=== PATIENT | male | born 1945 | race Caucasian/White ===

== ENCOUNTER 2017-06-02 16:36 | Inpatient (IN) | payer MEDICARE, BC ==
--- NOTE | 2017-06-02 17:46 | EDM.PDOC ---
<Karen Peng - Last Filed: 06/02/17 18:46> ED HPI GENERAL MEDICAL PROBLEM - General Chief Complaint: Respiratory Problem Stated Complaint: ABNORMAL XRAY AT [facility], [id number] Time Seen by Provider: 06/02/17 17:30 Source of Information: Reports: Patient, Family, RN, RN Notes Reviewed History Limitations: Reports: No Limitations - History of Present Illness INITIAL COMMENTS - FREE TEXT/NARRATIVE: Patient presents to the ER with his from [facility]. states he was seen last week for pneumonia, a chest xray was done at that time. He was started on Zithromax. He has completed the Zithromax and is not feeling any better so was seen at the clinic again today. He states he is not feeling, better, has been coughing quite a bit, until he gets quite short of breath. The patient and his were told that there were some concerning findings on the chest xray done last week. They state he has a history of PE and has been on coumadin. They would like to look further into it. Patient denies fever, chills, N/V/D, chest pain. He states he does get SOB from time to time, especially with coughing. Onset: Gradual - Related Data Allergies Allergy/AdvReac Type Severity Reaction Status Date / Time mercury (elemental) Allergy Unknown Rash Verified 06/02/17 16:52 [Mercury (Elemental)] Sulfa (Sulfonamide Allergy Unknown Rash Verified 06/02/17 16:52 Antibiotics) mold Allergy Sneezing Uncoded 06/02/17 16:52 Home Meds: Home Meds Famotidine [Pepcid] 20 mg PO DAILY PRN 03/30/14 [History] Folic Acid 1 mg PO DAILY 03/30/14 [History] Lisinopril 5 mg PO DAILY 03/30/14 [History] Loratadine/Pseudoephedrine [Claritin-D 24 Hour Tablet] 1 tab PO DAILY PRN [History] Tamsulosin [Flomax] 0.4 mg PO DAILY 03/30/14 [History] Tiotropium [Spiriva Handihaler] 1 cap INH DAILY 03/30/14 [History] Warfarin Sodium 5 mg PO ASDIRECTED 03/30/14 [History] predniSONE [Prednisone] 1 tab PO .EVERY OTHER DAY 03/30/14 [History] Acetaminophen/Diphenhydramine [Tylenol Pm Ex-Strength Caplet] 2 tab PO DAILY PRN 09/21/15 [History] Warfarin [Coumadin] 2.5 mg PO ASDIRECTED 09/21/15 [History] Acetaminophen 1,000 mg PO Q4H PRN 06/27/16 [History] traMADol [Ultram] 50 mg PO Q6H PRN 06/27/16 [History] Albuterol/Ipratropium [DuoNeb 3.0-0.5 MG/3 ML] 3 ml NEB Q4HRRT PRN #60 neb 06/30 [Rx] Doxycycline Monohydrate [Doxycycline Monohydrate] 100 mg PO BID 06/02/17 [ History] Past Medical History HEENT History: Reports: Hard of Hearing, Impaired Vision, Other (See Below) Other HEENT History: MILLE LACS to the right ear, sees well with glasses Cardiovascular History: Reports: Blood Clots/VTE/DVT, CAD, High Cholesterol, Hypertension, [place] Respiratory History: Reports: COPD Genitourinary History: Reports: BPH, Other (See Below) Other Genitourinary History: kidney disease Musculoskeletal History: Reports: Back Pain, Chronic, Osteoarthritis Endocrine/Metabolic History: Reports: Obesity/BMI 30+ Hematologic History: Reports: Folic Acid Oncologic (Cancer) History: Reports: Basal Cell Carcinoma Dermatologic History: Reports: Other (See Below) Other Dermatologic History: skin cancer removed from nose - Infectious Disease History Infectious Disease History: Reports: Measles, Mumps - Past Surgical History GI Surgical History: Reports: Appendectomy, Cholecystectomy Male Surgical History: Reports: Other (See Below) Other Male Surgeries/Procedures: kidney disease. slow bladder flow Musculoskeletal Surgical History: Reports: Hip Replacement Social & Family History - Family History Family Medical History: Noncontributory HEENT: Reports: None Cardiac: Reports: [place] GI: Reports: Other (See Below) Other GI Family History: mother had stomach ulcers OBGYN: Reports: None Musculoskeletal: Reports: Osteoarthritis Neurological: Reports: CVA Hematologic: Reports: None Oncologic: Reports: Bladder, Brain, Colon, Prostate, Other (See Below) Other Oncologic Family History: throat and bladder cancer - Tobacco Use Smoking Status *Q: Never Smoker Years of Tobacco use: 30 Packs/Tins Daily: 1 Used Tobacco, but Quit: Yes Month Tobacco Last Used: June Second Hand Smoke Exposure: No - Caffeine Use Caffeine Use: Reports: Coffee, Soda, Tea - Alcohol Use Days Per Week of Alcohol Use: 2 Number of Drinks Per Day: 2 Total Drinks Per Week: 4 - Recreational Drug Use Recreational Drug Use: No - Living Situation & Occupation Living situation: Reports: , with Spouse Occupation: Retired ED ROS GENERAL - Review of Systems Review Of Systems: ROS reveals no pertinent complaints other than HPI. ED EXAM, GENERAL - Physical Exam Exam: See Below Exam Limited By: No Limitations General Appearance: Alert, WD/WN, No Apparent Distress Eye Exam: Bilateral Eye: Normal Inspection, PERRL Ears: Normal External Exam, Hearing Grossly Normal Nose: Normal Inspection Throat/Mouth: Normal Inspection, Normal Lips, Normal Teeth, Normal Gums, Normal Oropharynx (mildly erythematous), Normal Voice, No Airway Compromise Head: Atraumatic, Normocephalic Neck: Normal Inspection, Supple, Non-Tender, Full Range of Motion Respiratory/Chest: No Respiratory Distress, No Accessory Muscle Use, Chest Non- Tender, Wheezing (inspiratory and expiratory throughout.) Cardiovascular: Normal Peripheral Pulses, Regular Rate, Rhythm, No Edema, No Gallop, No JVD, No Murmur, No Rub Peripheral Pulses: 2+: Radial (L), Radial (R) GI/Abdominal: Normal Bowel Sounds, Soft, Non-Tender, No Organomegaly, No Distention, No Abnormal Bruit, No Mass (Male) Exam: Deferred Rectal (Males) Exam: Deferred Back Exam: Normal Inspection, Full Range of Motion, NT Extremities: Normal Inspection, Normal Range of Motion, Non-Tender, Normal Capillary Refill, No Pedal Edema Neurological: Alert, Oriented, Normal Cognition, Normal Gait, No Motor/Sensory Deficits Psychiatric: Normal Affect, Normal Mood Skin Exam: Warm, Dry, Intact, Normal Color, No Rash Lymphatic: No Adenopathy Course - Vital Signs Last Recorded V/S: Last Vital Signs Temp 98.5 F 06/02/17 19:53 Pulse 88 06/02/17 19:53 Resp 19 06/02/17 19:53 BP 148/83 H 06/02/17 19:53 Pulse Ox 96 06/02/17 19:53 - Orders/Labs/Meds Orders: Active Orders 24 hr Category Date Time Status CULTURE BLOOD [BC] Stat Lab 06/02/17 20:05 Ordered CULTURE BLOOD [BC] Stat Lab 06/02/17 20:05 Ordered LACTIC ACID [CHEM] Stat Lab 06/02/17 20:04 Ordered Piperacillin/Tazobactam [Zosyn] 3.375 gm Med 06/02/17 19:58 Ordered Sodium Chloride 0.9% [Normal Saline] 100 ml IV ONETIME Blood Culture x2 Reflex Set [OM.PC] Stat Oth 06/02/17 20:04 Ordered Medication Orders Piperacillin Sod/Tazobactam (Sod 3.375 gm/ Sodium Chloride) 100 mls @ 200 mls/ hr IV ONETIME ONE Stop: 06/02/17 20:27 Labs: Laboratory Tests 06/02/17 06/02/17 06/02/17 Range/Units 17:42 17:42 17:42 WBC 8.4 (5.0-10.0) 10^3/uL RBC 5.02 (4.6-6.2) 10^6/uL Hgb 15.7 (14.0-18.0) g/dL Hct 46.9 (40.0-54.0) % MCV 93.4 (80-100) fL MCH 31.3 (27.0-34.0) pg MCHC 33.5 (33.0-35.0) g/dL Plt Count 277 (150-450) 10^3/uL Neut % (Auto) 59.5 (42.2-75.2) % Lymph % (Auto) 12.8 L (20.5-50.1) % Garland % (Auto) 21.9 H (2-8) % Eos % (Auto) 4.7 H (1.0-3.0) % Baso % (Auto) 1.1 H (0.0-1.0) % Add Manual Diff Yes Neutrophils % (Manual) 65 (42-75) % Lymphocytes % (Manual) 13 L (20-50) % Monocytes % (Manual) 19 H (2-8) % Eosinophils % (Manual) 3 (1-3) % PT 19.3 H D (9.0-12.0) SEC INR 1.9 H (0.9-1.2) Sodium 137 (135-145) mmol/L Potassium 4.0 (3.6-5.0) mmol/L Chloride 100 L (101-111) mmol/L Carbon Dioxide 28.0 (21.0-31.0) mmol/L Anion Gap 13.0 BUN 19 H (7-18) mg/dL Creatinine 0.8 (0.6-1.3) mg/dL Est Cr Clr Drug Dosing 80.33 mL/min Estimated GFR (MDRD) > 60 BUN/Creatinine Ratio 23.75 Glucose 117 H (74-105) mg/dL Calcium 9.3 (8.4-10.2) mg/dl Total Bilirubin 0.6 (0.2-1.0) mg/dL AST 30 (10-42) IU/L ALT 30 (10-60) IU/L Alkaline Phosphatase 68 (42-121) IU/L Lactate Dehydrogenase (91-180) IU/L C-Reactive Protein (0.0-1.3) mg/dL Total Protein 7.8 (6.7-8.2) g/dl Albumin 3.9 (3.2-5.5) g/dl Globulin 3.9 Albumin/Globulin Ratio 1.00 06/02/17 06/02/17 Range/Units 17:42 17:42 WBC (5.0-10.0) 10^3/uL RBC (4.6-6.2) 10^6/uL Hgb (14.0-18.0) g/dL Hct (40.0-54.0) % MCV (80-100) fL MCH (27.0-34.0) pg MCHC (33.0-35.0) g/dL Plt Count (150-450) 10^3/uL Neut % (Auto) (42.2-75.2) % Lymph % (Auto) (20.5-50.1) % Garland % (Auto) (2-8) % Eos % (Auto) (1.0-3.0) % Baso % (Auto) (0.0-1.0) % Add Manual Diff Neutrophils % (Manual) (42-75) % Lymphocytes % (Manual) (20-50) % Monocytes % (Manual) (2-8) % Eosinophils % (Manual) (1-3) % PT (9.0-12.0) SEC INR (0.9-1.2) Sodium (135-145) mmol/L Potassium (3.6-5.0) mmol/L Chloride (101-111) mmol/L Carbon Dioxide (21.0-31.0) mmol/L Anion Gap BUN (7-18) mg/dL Creatinine (0.6-1.3) mg/dL Est Cr Clr Drug Dosing mL/min Estimated GFR (MDRD) BUN/Creatinine Ratio Glucose (74-105) mg/dL Calcium (8.4-10.2) mg/dl Total Bilirubin (0.2-1.0) mg/dL AST (10-42) IU/L ALT (10-60) IU/L Alkaline Phosphatase (42-121) IU/L Lactate Dehydrogenase 185 H (91-180) IU/L C-Reactive Protein 2.3 H (0.0-1.3) mg/dL Total Protein (6.7-8.2) g/dl Albumin (3.2-5.5) g/dl Globulin Albumin/Globulin Ratio Meds: Medications Generic Name Dose Route Start Last Admin Trade Name Freq PRN Reason Stop Dose Admin Piperacillin Sod/Tazobactam 100 mls @ 200 mls/hr 06/02/17 19:58 Sod 3.375 gm/ Sodium Chloride IV 06/02/17 20:27 ONETIME ONE Discontinued Medications Generic Name Dose Route Start Last Admin Trade Name Freq PRN Reason Stop Dose Admin Iopamidol 75 ml 06/02/17 18:11 06/02/17 18:53 Isovue-300 (61%) IVPUSH 06/02/17 18:12 75 ml ONETIME ONE Administration Departure - Departure Disposition: Admitted As Inpatient 67 Clinical Impression: Subtherapeutic anticoagulation, Abnormal chest CT Pneumonia Qualifiers: Pneumonia type: due to unspecified organism Laterality: left Lung location: lower lobe of lung Qualified Code(s): J18.1 - Lobar pneumonia, unspecified organism COPD (chronic obstructive pulmonary disease) Qualifiers: COPD type: COPD with acute lower respiratory infection Qualified Code(s): J44.0 - Chronic obstructive pulmonary disease with acute lower respiratory infection - Discharge Information Forms: ED Department Discharge - My Orders Last 24 Hours: My Active Orders 06/02/17 19:58 Piperacillin/Tazobactam [Zosyn] 3.375 gm Sodium Chloride 0.9% [Normal Saline] 100 ml IV ONETIME 06/02/17 20:04 LACTIC ACID [CHEM] Stat Blood Culture x2 Reflex Set [OM.PC] Stat 06/02/17 20:05 CULTURE BLOOD [BC] Stat CULTURE BLOOD [BC] Stat - Assessment/Plan Last 24 Hours: My Active Orders 06/02/17 19:58 Piperacillin/Tazobactam [Zosyn] 3.375 gm Sodium Chloride 0.9% [Normal Saline] 100 ml IV ONETIME 06/02/17 20:04 LACTIC ACID [CHEM] Stat Blood Culture x2 Reflex Set [OM.PC] Stat 06/02/17 20:05 CULTURE BLOOD [BC] Stat CULTURE BLOOD [BC] Stat <Cassandra Abdi - Last Filed: 06/02/17 20:11> Course - Radiology Interpretation Free Text/Narrative:: CT chest with contrast. COPD Left lower lobe pneumonia, cannot rule out mass, recommend follow up CT when pneumonia cleared. - Re-Assessments/Exams Free Text/Narrative Re-Assessment/Exam: 06/02/17 20:[address] Simon, Agree to admit for further management Left lower lobe pneumonia. MD also informed of remaining CT results with question of mass in area of pneumonia. Initiate Zosyn Vitals remain stable, patient in no acute distress. Bilateral wheezing throughout with diminished breath sounds Left lower. Departure - Departure Time of Disposition: 20:10 Condition: Undetermined - My Orders Last 24 Hours: My Active Orders 06/02/17 19:58 Piperacillin/Tazobactam [Zosyn] 3.375 gm Sodium Chloride 0.9% [Normal Saline] 100 ml IV ONETIME 06/02/17 20:04 LACTIC ACID [CHEM] Stat Blood Culture x2 Reflex Set [OM.PC] Stat 06/02/17 20:05 CULTURE BLOOD [BC] Stat CULTURE BLOOD [BC] Stat - Assessment/Plan Last 24 Hours: My Active Orders 06/02/17 19:58 Piperacillin/Tazobactam [Zosyn] 3.375 gm Sodium Chloride 0.9% [Normal Saline] 100 ml IV ONETIME 06/02/17 20:04 LACTIC ACID [CHEM] Stat Blood Culture x2 Reflex Set [OM.PC] Stat 06/02/17 20:05 CULTURE BLOOD [BC] Stat CULTURE BLOOD [BC] Stat
[2017-06-02 18:05] LABS: CHLORIDE,CL 100 mmol/L (101-111); SODIUM,NA 137 mmol/L (135-145)
[2017-06-02] MEDS ORDERED: Iopamidol 612 MG/ML 75 ML Bottle IVPUSH ONE (18:11)
[2017-06-02] MEDS ORDERED: Piperacillin/Tazobactam 3.375 GM in Sodium Chloride 0.9% 100 ML IV ONE (19:58)
[2017-06-02] MEDS ORDERED: Acetaminophen 325 MG Tab PO PRN (21:58)
[2017-06-02] MEDS ORDERED: Ondansetron 4 MG Tab.DIS PO PRN (21:58)
[2017-06-02] MEDS ORDERED: oxyCODONE 5 MG Tab PO PRN (21:58)
[2017-06-02] MEDS ORDERED: Morphine 2 MG/ML Syringe IVPUSH PRN (21:58)
[2017-06-02] MEDS: methylPREDNISolone Sodium Succinate 40 MG/1 ML SDV IVPUSH SCH (22:21)
[2017-06-02] MEDS: Albuterol/Ipratropium 3.0-0.5 MG/3 ML Neb Soln NEB SCH (22:27)
[2017-06-02] MEDS: Zolpidem 5 MG Tab PO PRN (22:27)
[2017-06-02] MEDS: Budesonide 0.5 MG/2 ML Neb Susp NEB SCH (22:35)
[2017-06-02] MEDS ORDERED: diphenhydrAMINE 50 MG Cap PO PRN (22:44)
[2017-06-02] MEDS ORDERED: Acetaminophen 500 MG Tab PO PRN (22:44)
[2017-06-03] MEDS: Piperacillin/Tazobactam 3.375 GM in Sodium Chloride 0.9% 100 ML IV SCH ×5 (01:38→18:03)
[2017-06-03] MEDS: Albuterol/Ipratropium 3.0-0.5 MG/3 ML Neb Soln NEB SCH ×4 (01:41→18:03)
--- NOTE | 2017-06-03 02:18 | HP ---
CHIEF COMPLAINT: Increasing shortness of breath. HISTORY OF PRESENTING ILLNESS: Mr. Ok Posey is a 71-year-old male with medical history significant for hypertension, hyperlipidemia, chronic obstructive pulmonary airway disease, history of pulmonary embolism and factor V Leiden requiring chronic anticoagulation with Coumadin, chronic kidney disease, obesity, obstructive sleep apnea on CPAP, history of basal cell carcinoma of the skin, who presented to the ER with complaints of increasing shortness of breath. The patient has been dealing with this for the last few days and has tried outpatient therapy with Zithromax, but has failed outpatient treatment requiring admission to the hospital. At this time, the patient complains of increasing shortness of breath which has been going on for the last 8 to 9 days which has been progressively getting worse. He grades the shortness of breath as 8/10 in intensity, aggravated on coughing, relieved with rest associated with chest pain mostly in the lower chest 3 to 4/10 in intensity, aggravated on coughing and deep breathing, relieved with rest. Denies any fevers or chills in the last few days. No sick contacts, but back in April, he visited [place] and [place] at that time. He denies any nausea or vomiting. No diarrhea. No abdominal pain. No ongoing chest pains at this time. The patient denied any history of chest pains on exertion, but has mild dyspnea on exertion. No history of orthopnea or paroxysmal nocturnal dyspnea. The patient denied any history of hematemesis, hematochezia, or melanotic stools. Normal bowel and bladder habits otherwise. REVIEW OF SYSTEMS: A complete review of system including skin, ear, nose, and throat, cardiovascular system, respiratory system, gastrointestinal system, genitourinary system, endocrinology, hematology, allergy, immunology, oncology were all evaluated and were negative except for the above-said notes. PAST MEDICAL HISTORY: Significant for hypertension; hyperlipidemia; coronary artery disease; chronic kidney disease; chronic obstructive pulmonary airway disease; factor V Leiden mutation; pulmonary embolism on chronic anticoagulation with Coumadin; obstructive sleep apnea, requiring CPAP at night. PAST SURGICAL HISTORY: Significant for total knee replacement, tonsillectomy, hip surgery in the past, hernia repair, colonoscopy, EGD with biopsy, bronchoscopy, cardiac catheterization in the past. FAMILY HISTORY: Significant for hypertension, coronary artery disease, and obesity in his mother and prostate cancer with bone metastases in his father, stomach cancer and ovarian cancer with brain cancer in his sisters and 1 brother with laryngeal cancer and daughter with the cervical cancer. SOCIAL HISTORY: The patient denies any history of smoking tobacco. He had quit smoking many years back. History of occasional alcohol intake. ALLERGIES: The patient noted to have allergies to sulfa antibiotics, mercury, molds and smuts, and other environmental allergies. MEDICATIONS: Home medications reviewed. He is noted to be on; 1. Doxycycline. 2. Zithromax recently. 3. Spiriva 18 mcg inhalation daily. 4. Coumadin 5 mg daily. 5. Folic acid 1 mg daily. 6. Ultram 50 mg two times a day as needed. 7. Prednisone 5 mg every other day. 8. Lisinopril 5 mg daily. 9. Flomax 0.4 mg every evening. PHYSICAL EXAMINATION: Vital Signs: Temperature of 99.1, pulse of 93, blood pressure 152/78, respiratory rate of 20, saturating at 95% on room air. General Appearance: The patient is well oriented to time, place, and person. Follows commands spontaneously. Cardiovascular System: S1, S2 heard with normal intensity. No gallops. Respiratory System: Bilateral wheezing noted, mild crepitations at the bases. Abdomen: Soft. Bowel sounds positive. Nontender. No rigidity. Extremities: No edema in bilateral lower extremities. Neurology: No gross focal neurological deficits. LABORATORY DATA: Reviewed. WBC 8.4, hemoglobin 15.7, hematocrit 46.9, platelet count 277. INR 1.9. Sodium 137, potassium 4, chloride 100, bicarb 28, BUN 19, creatinine 0.8, glucose 117. C-reactive protein 2.3, lactate dehydrogenase 185. AST 30, ALT 30, total bilirubin 0.6. IMAGING: CT scan on the chest shows evidence of pneumonia consolidation with masslike appearance on the left lower lobe in the retrocardiac region. Recommendation is to follow up with the CT scan in next few weeks after completing the treatment for pneumonia. ASSESSMENT: 1. Pneumonia. 2. Acute chronic obstructive pulmonary disease exacerbation. 3. Hypertension. 4. Hyperlipidemia. 5. Chronic kidney disease. 6. Chronic anticoagulation with Coumadin. 7. History of pulmonary embolism in the past. PLAN: 1. Pneumonia. The patient presents with pneumonia. He has failed outpatient treatment with Zithromax. He is noted to have masslike consolidation. We will have him on broad-spectrum antibiotic with Zosyn. The patient has been on chronic steroid therapy, which could lead to immunosuppressive state, so we will start him on Zosyn, obtain sputum cultures, blood cultures, and titrate the antibiotics once we have the culture reports available. 2. Hypertension. The patient's blood pressure seems to be slightly elevated. This could be resulting from stress, continue with current treatment plan. 3. Obstructive sleep apnea. The patient uses CPAP at night. The patient is encouraged to use the CPAP while in the hospital. 4. Acute chronic obstructive pulmonary disease exacerbation. We will have him on nebulizer treatment with DuoNeb and Pulmicort nebulizers. We will start him on IV methylprednisone. As he is starting on high-dose steroids, we will have him on GI prophylaxis with omeprazole and we will closely follow. 5. Deep vein thrombosis prophylaxis. The patient is currently on Coumadin, pharmacy will dose the Coumadin for therapeutic INR of 2 to 3. 6. Code status. The patient wants to be full code. 7. Discussed with [facility] ER physician, regarding the plan of care, reviewed the labs and medications, reviewed the old charts. Discussed with family members at bedside. [facility] /[id number]
[2017-06-03] MEDS: methylPREDNISolone Sodium Succinate 40 MG/1 ML SDV IVPUSH SCH ×4 (05:25→22:17)
[2017-06-03] MEDS: Pantoprazole 40 MG Tab.CR PO SCH (05:28)
[2017-06-03 07:02] LABS: CHLORIDE,CL 102 mmol/L (101-111); SODIUM,NA 137 mmol/L (135-145)
[2017-06-03] MEDS: Tiotropium Inhaler 18 MCG Inhalation Powder Cap Kit of 5 INH SCH (08:53)
[2017-06-03] MEDS: Budesonide 0.5 MG/2 ML Neb Susp NEB SCH ×2 (08:54→18:03)
[2017-06-03] MEDS: Lisinopril 5 MG Tab PO SCH (08:54)
[2017-06-03] MEDS: Folic Acid 1 MG Tab PO SCH (08:56)
[2017-06-03] MEDS: Tamsulosin 0.4 MG Cap.ER PO SCH (08:56)
[2017-06-03] MEDS: Sodium Chloride 0.9% 10 ML Syringe FLUSH PRN ×2 (09:25→22:17)
--- NOTE | 2017-06-03 12:21 | PN ---
DATE: 06/03/2017 SUBJECTIVE: Mr. Ok Posey is a 71-year-old male with medical history significant for hypertension, hyperlipidemia, and chronic obstructive pulmonary disease; history of pulmonary embolism, on chronic anticoagulation with Coumadin; obstructive sleep apnea, requiring CPAP at night admitted with increasing shortness of breath and was noted to be in acute COPD exacerbation with underlying pneumonia. For the last 24 hours, the patient was continued on IV methylprednisone nebulizer treatment. His shortness of breath has much improved. He denies any chest pains. No abdominal pain. No nausea. No vomiting. No diarrhea. He continues to have cough with sputum production. REVIEW OF SYSTEMS: Cardiovascular, respiratory, gastrointestinal, neurology, constitutional were all evaluated. PHYSICAL EXAMINATION: Vitals Signs: Temperature of 98.2, pulse of 85, blood pressure 144/84, respiratory rate of 18, and saturating at 93% on room air. General Appearance: The patient is well oriented to time, place, and person. Follows commands spontaneously. Cardiovascular System: S1 and S2 heard with normal intensity. No gallops. Respiratory System: Clear to auscultation bilaterally. No wheeze. No crepitations. Abdomen: Soft. Bowel sounds positive. Nontender. No rigidity. Extremities: No edema in bilateral lower extremities. MEDICATIONS: Reviewed. Continue with the same. 1. Tylenol 650 every 4 hours as needed for pain. 2. DuoNeb 3 mL nebulizer every 6 hours. 3. Pulmicort 0.5 mg nebulizer twice daily. 4. Benadryl 50 mg oral at bedtime as needed for sleep. 5. Folic acid 1 mg daily. 6. Lisinopril 5 mg daily. 7. Methylprednisolone 80 mg IV q.8 hourly. 8. Morphine 2 mg IV q.2 hourly. 9. Oxycodone 5 mg every 4 hours as needed for pain. 10.Protonix 40 mg daily. 11.Zosyn 3.375 g IV q.6 hourly. 12.Spiriva 18 mcg inhalation daily. 13.Ambien 5 mg at bedtime as needed for sleep. LABORATORY DATA: 1. WBC 6.9, hemoglobin 15.9, hematocrit 48.2, and platelet count 285. 2. Sodium 137, potassium 4, chloride 102, bicarb 25, BUN 18, creatinine 1, glucose 147. ASSESSMENT: 1. Pneumonia. 2. Acute chronic obstructive pulmonary disease exacerbation. 3. Hypertension. 4. Hyperlipidemia. 5. Chronic kidney disease. 6. Chronic anticoagulation with Coumadin with underlying history of pulmonary embolism and factor V Leiden mutation. PLAN: 1. Pneumonia. The patient is currently on IV antibiotics. CT scan of the chest showed evidence of consolidating mass in the left lower lobe. We will continue with the current IV antibiotic regimen. Given his immunosuppressive state, we have him on broad-spectrum IV antibiotic with Zosyn. Await for sputum cultures. Initial sputum sample seems to be contaminated, so we will repeat the sputum culture and blood cultures and closely follow. 2. Acute chronic obstructive pulmonary disease exacerbation. The patient is currently on DuoNeb and Pulmicort nebulizer and IV methylprednisolone. Gradually try to taper down the methylprednisolone. 3. Hypertension, well controlled. Continue with current treatment plan. 4. The patient will be encouraged to use incentive spirometer and flutter valve. [facility] /[id number]
[2017-06-03] MEDS ORDERED: Warfarin 5 MG Tab PO ONE (15:00)
[2017-06-03] MEDS: Zolpidem 5 MG Tab PO PRN (22:28)
[2017-06-04] MEDS: Piperacillin/Tazobactam 3.375 GM in Sodium Chloride 0.9% 100 ML IV SCH ×4 (00:26→17:52)
[2017-06-04] MEDS: Albuterol/Ipratropium 3.0-0.5 MG/3 ML Neb Soln NEB SCH ×4 (00:28→17:52)
[2017-06-04] MEDS: Sodium Chloride 0.9% 10 ML Syringe FLUSH PRN ×5 (00:28→21:55)
[2017-06-04] MEDS: Pantoprazole 40 MG Tab.CR PO SCH (05:58)
[2017-06-04] MEDS: methylPREDNISolone Sodium Succinate 40 MG/1 ML SDV IVPUSH SCH ×3 (05:58→21:56)
[2017-06-04] MEDS: Budesonide 0.5 MG/2 ML Neb Susp NEB SCH ×2 (07:33→17:52)
[2017-06-04] MEDS: Tiotropium Inhaler 18 MCG Inhalation Powder Cap Kit of 5 INH SCH (08:28)
[2017-06-04] MEDS: Tamsulosin 0.4 MG Cap.ER PO SCH (08:29)
[2017-06-04] MEDS: Folic Acid 1 MG Tab PO SCH (08:29)
[2017-06-04] MEDS: Lisinopril 5 MG Tab PO SCH (08:29)
--- NOTE | 2017-06-04 13:04 | PN ---
DATE: 06/04/2017 SUBJECTIVE: Mr. Ok Posey is a 71-year-old male with medical history significant for hypertension; hyperlipidemia; chronic obstructive pulmonary disease; history of pulmonary embolism, on chronic anticoagulation with Coumadin; obstructive sleep apnea, requiring CPAP at night, admitted to the hospital with complaints of increasing shortness of breath and noted to have acute COPD exacerbation with underlying pneumonia. For the last 24 hours, the patient is continued on IV methylprednisone, IV antibiotics, and also nebulizer treatment. He denies any ongoing chest pains. No complaints of shortness of breath. No complaints of abdominal pain. No nausea, vomiting, or diarrhea. REVIEW OF SYSTEMS: Cardiovascular, respiratory, gastrointestinal, Neurology, constitutional were all evaluated. PHYSICAL EXAMINATION: Vital signs: Temperature of 98.3, pulse of 91, blood pressure 153/94, respiratory rate of 20, saturating at 95% on room air. General Appearance: Patient is well oriented to time, place, and person. Follows commands spontaneously. Cardiovascular System: S1, S2 heard with normal intensity, no gallops. Respiratory System: Clear to auscultation bilaterally. No wheeze. No crepitations. Abdomen: Soft. Bowel sounds are positive. Nontender. No rigidity. Extremities: No edema in bilateral lower extremities. Neurology: No gross focal neurological deficits. MEDICATIONS: Reviewed. 1. Continue with Tylenol 650 every 4 hours as needed for pain. 2. DuoNeb 3 mL nebulizer every 6 hours. 3. Pulmicort 0.5 mg nebulizer twice a day. 4. Folic acid 1 mg daily. 5. Lisinopril 5 mg daily. 6. Methylprednisone changed to 40 mg IV q.12 hourly. 7. Morphine 2 mg IV every 2 hours as needed for pain. 8. Oxycodone 5 mg every 4 hours as needed for pain. 9. Protonix 40 mg daily. 10.Zosyn 3.375 g IV q.6 hourly. 11.Flomax 0.4 mg daily. 12.Spiriva 18 mcg daily. 13.Coumadin, pharmacy to dose. 14.Ambien 5 mg at bedtime as needed for sleep. LABORATORY DATA: INR 1.9. Microbiology: Sputum culture is pending. No growth in the blood cultures. ASSESSMENT: 1. Acute chronic obstructive pulmonary disease exacerbation. 2. Pneumonia. 3. Hypertension. 4. Hyperlipidemia. 5. Chronic kidney disease. 6. Chronic anticoagulation with Coumadin. PLAN: 1. Pneumonia. Patient is responding well to the treatment. He started on IV antibiotic, Zosyn. Still awaiting for sputum culture. No growth in the blood cultures noted. Continue with IV Zosyn. The patient can be switched to Augmentin at the time of discharge. 2. Acute chronic obstructive pulmonary disease exacerbation, much improved. We will try to titrate down the steroids. We will decrease the methylprednisone to 40 mg IV q.12 hourly and then maybe switch him to oral prednisone tomorrow. Continue with current nebulizer treatments. 3. Hypertension. The patient's blood pressure is in acceptable range. Continue with current treatment plan with lisinopril. 4. Obstructive sleep apnea. The patient uses his CPAP while in the hospital. Continue the same. 5. Discussed with family members at bedside. 6. Patient's CT scan on admission showed evidence of consolidating mass. He is advised to continue with IV antibiotic regimen and repeat a CT scan in next 2 to 3 weeks for possible resolution of the mass; if not, then the patient would benefit from Pulmonary consultation for possible biopsy of the mass at that time. [facility] /[id number]
[2017-06-04] MEDS ORDERED: Warfarin 5 MG Tab PO ONE (14:00)
[2017-06-04] MEDS: Zolpidem 5 MG Tab PO PRN (22:05)
[2017-06-05] MEDS: Sodium Chloride 0.9% 10 ML Syringe FLUSH PRN ×5 (00:29→18:24)
[2017-06-05] MEDS: Piperacillin/Tazobactam 3.375 GM in Sodium Chloride 0.9% 100 ML IV SCH ×4 (00:32→17:50)
[2017-06-05] MEDS: Albuterol/Ipratropium 3.0-0.5 MG/3 ML Neb Soln NEB SCH ×4 (00:36→17:50)
[2017-06-05] MEDS: Pantoprazole 40 MG Tab.CR PO SCH (05:20)
[2017-06-05] MEDS: Budesonide 0.5 MG/2 ML Neb Susp NEB SCH ×2 (08:33→17:50)
[2017-06-05] MEDS: Tamsulosin 0.4 MG Cap.ER PO SCH (09:23)
[2017-06-05] MEDS: Folic Acid 1 MG Tab PO SCH (09:23)
[2017-06-05] MEDS: Lisinopril 5 MG Tab PO SCH (09:23)
[2017-06-05] MEDS: Tiotropium Inhaler 18 MCG Inhalation Powder Cap Kit of 5 INH SCH (09:27)
[2017-06-05] MEDS: methylPREDNISolone Sodium Succinate 40 MG/1 ML SDV IVPUSH SCH (10:03)
[2017-06-05] MEDS ORDERED: Warfarin 2.5 MG Tab PO ONE (14:00)
--- NOTE | 2017-06-05 21:38 | PCM.PN ---
- General Info Date of Service: 06/05/17 Subjective Update: Mr. Schneider seen today and feels significantly better. breathing ok, still continues to cough, not productive today. denies any chest pain, tolerating meals. no issues reported today. - Patient Data Vitals - Most Recent: Last Vital Signs Temp 36.7 C 06/05/17 20:00 Pulse 88 06/05/17 20:00 Resp 20 06/05/17 20:00 BP 145/81 H 06/05/17 20:00 Pulse Ox 95 06/05/17 20:00 Weight - Most Recent: 109.225 kg I&O - Last 24 Hours: Intake & Output 06/05/17 06/05/17 06/05/17 06:59 14:59 22:59 Intake Total 453 120 99 Balance 453 120 99 Lab Results Last 24 Hours: Laboratory Results - last 24 hr 06/05/17 Range/Units 06:05 PT 23.3 H (9.0-12.0) SEC INR 2.3 H (0.9-1.2) Med Orders - Current: Current Medications Acetaminophen (Tylenol) 650 mg PO Q4H PRN PRN Reason: Pain (Mild 1-3)/fever Acetaminophen (Tylenol Extra Strength) 1,000 mg PO BEDTIME PRN PRN Reason: SLEEP Albuterol/Ipratropium (Duoneb 3.0-0.5 Mg/3 Ml) 3 ml NEB Q6HRRT [facility] Last Admin: 06/05/17 17:50 Dose: 3 ml Budesonide (Pulmicort) 0.5 mg NEB BIDRT [facility] Last Admin: 06/05/17 17:50 Dose: 0.5 mg Diphenhydramine HCl (Benadryl) 50 mg PO BEDTIME PRN PRN Reason: SLEEP Folic Acid (Folic Acid) 1 mg PO DAILY [facility] Last Admin: 06/05/17 09:23 Dose: 1 mg Piperacillin Sod/Tazobactam (Sod 3.375 gm/ Sodium Chloride) 100 mls @ 200 mls/ hr IV Q6HR [facility] Last Infusion: 06/05/17 18:27 Dose: Infused Lisinopril (Prinivil) 5 mg PO DAILY [facility] Last Admin: 06/05/17 09:23 Dose: 5 mg Methylprednisolone Sodium Succinate (Solu-Medrol) 40 mg IVPUSH DAILY [facility] Morphine Sulfate (Morphine) 2 mg IVPUSH Q2H PRN PRN Reason: Pain (severe 7-10) Ondansetron HCl (Zofran Odt) 4 mg PO Q4H PRN PRN Reason: nausea, able to take PO Oxycodone HCl (Oxycodone) 5 mg PO Q4H PRN PRN Reason: Pain (moderate 4-6) Pantoprazole Sodium (Protonix) 40 mg PO ACBREAKFAST [facility] Last Admin: 06/05/17 05:20 Dose: 40 mg Sodium Chloride (Saline Flush) 10 ml FLUSH ASDIRECTED PRN PRN Reason: Keep Vein Open Last Admin: 06/05/17 18:24 Dose: 10 ml Tamsulosin HCl (Flomax) 0.4 mg PO DAILY [facility] Last Admin: 06/05/17 09:23 Dose: 0.4 mg Tiotropium [place] (Spiriva Handihaler) 18 mcg INH DAILY [facility] Last Admin: 06/05/17 09:27 Dose: 18 mcg Warfarin Sodium (Pharmacy To Dose - Warfarin) 1 dose PO ASDIRECTED [facility] Zolpidem Tartrate (Ambien) 5 mg PO BEDTIME PRN PRN Reason: Sleep Last Admin: 06/04/17 22:05 Dose: 5 mg Discontinued Medications Piperacillin Sod/Tazobactam (Sod 3.375 gm/ Sodium Chloride) 100 mls @ 200 mls/ hr IV ONETIME ONE Stop: 06/02/17 20:27 Last Admin: 06/02/17 20:16 Dose: 200 mls/hr Piperacillin Sod/Tazobactam (Sod 3.375 gm/ Sodium Chloride) 100 mls @ 200 mls/ hr IV Q6H [facility] Last Admin: 06/03/17 14:48 Dose: Not Given Iopamidol (Isovue-300 (61%)) 75 ml IVPUSH ONETIME ONE Stop: 06/02/17 18:12 Last Admin: 06/02/17 18:53 Dose: 75 ml Methylprednisolone Sodium Succinate (Solu-Medrol) 80 mg IVPUSH Q8H [facility] Last Admin: 06/04/17 05:58 Dose: 80 mg Methylprednisolone Sodium Succinate (Solu-Medrol) 40 mg IVPUSH Q12H [facility] Last Admin: 06/05/17 10:03 Dose: 40 mg Non-Formulary Medication (Acetaminophen/Diphenhydramine [Tylenol Pm Ex-Strength Caplet]) 2 tab PO DAILY PRN PRN Reason: Sleep Warfarin Sodium (Coumadin) 5 mg PO ONETIME ONE Stop: 06/03/17 15:01 Last Admin: 06/03/17 15:01 Dose: 5 mg Warfarin Sodium (Coumadin) 5 mg PO ONETIME ONE Stop: 06/04/17 14:01 Last Admin: 06/04/17 13:52 Dose: 5 mg Warfarin Sodium (Coumadin) 2.5 mg PO ONETIME ONE Stop: 06/05/17 14:01 Last Admin: 06/05/17 13:48 Dose: 2.5 mg - Exam General: Alert, Oriented HEENT: Pupils Equal Neck: Supple Lungs: Normal Respiratory Effort Cardiovascular: Regular Rate, Regular Rhythm GI/Abdominal Exam: Normal Bowel Sounds, Soft, Non-Tender - Problem List Review Problem List Initiated/Reviewed/Updated: Yes - My Orders Last 24 Hours: My Active Orders 06/06/17 09:00 methylPREDNISolone Sod Succ [Solu-MEDROL] 40 mg IVPUSH DAILY - Plan Plan:: 1. left sided pneumonia, clinically improving. afrebril and clinically breathing better - on IV antibiotics - await final sputum culture 2. Left sided lung mass - may need a repeat IMaging after completion of treatment for pneumonia 3. COPD - breathing better - try to taper down further steroids 4. warfarin anticoagulation - has history of pulmonary embolism and factor V leiden mutation - INR improving, no signs of bleeding - pharmacy dosing coumadin, dialy INR
[2017-06-05] MEDS: Zolpidem 5 MG Tab PO PRN (22:12)
[2017-06-06] MEDS: Sodium Chloride 0.9% 10 ML Syringe FLUSH PRN ×2 (00:19→08:32)
[2017-06-06] MEDS: Albuterol/Ipratropium 3.0-0.5 MG/3 ML Neb Soln NEB SCH ×2 (00:20→07:16)
[2017-06-06] MEDS: Piperacillin/Tazobactam 3.375 GM in Sodium Chloride 0.9% 100 ML IV SCH ×3 (00:20→11:51)
[2017-06-06] MEDS: Pantoprazole 40 MG Tab.CR PO SCH (06:10)
[2017-06-06 06:51] VITALS: BP 140/91
[2017-06-06] MEDS: Budesonide 0.5 MG/2 ML Neb Susp NEB SCH (07:16)
[2017-06-06] MEDS: Tiotropium Inhaler 18 MCG Inhalation Powder Cap Kit of 5 INH SCH (08:31)
[2017-06-06] MEDS: Lisinopril 5 MG Tab PO SCH (08:32)
[2017-06-06] MEDS: Folic Acid 1 MG Tab PO SCH (08:32)
[2017-06-06] MEDS: Tamsulosin 0.4 MG Cap.ER PO SCH (08:32)
[2017-06-06] MEDS ORDERED: methylPREDNISolone Sodium Succinate 40 MG/1 ML SDV IVPUSH SCH ×2 (09:00)
[2017-06-06] MEDS ORDERED: Warfarin 2.5 MG Tab PO ONE (14:00)
--- NOTE | 2017-07-23 12:02 | DISCH ---
FINAL DIAGNOSES: 1. Left-sided pneumonia. 2. Left-sided lung mass. 3. Chronic obstructive pulmonary disease. 4. Warfarin anticoagulation. BRIEF HISTORY AND PHYSICAL EXAMINATION: The patient is a 71-year-old male, who was admitted on June 02, 2017 because of increasing shortness of breath that has been going on in the last 8 to 9 days associated with cough and chest pain in the left lower chest. No fever or chills. Other comorbidities include hypertension; hyperlipidemia; history of CAD; CKD; COPD; Factor v Leiden mutation, on warfarin anticoagulation; pulmonary embolism; obstructive sleep apnea. When he was in the emergency room, he was noted to have blood pressure of 152/78, heart rate of 93 beats per minute, temperature was 99.1, respirations 20 breaths per minute, saturation 95% on room air. Pertinent findings showed a bilateral wheezing and mild crepitations at bases. No edema in lower extremities. Workup done in the hospital. Admitting CBC; showed a WBC of 8.4, hemoglobin 15.7, platelets 277. INR 1.9. Initial CRP was 2.3. His INR was monitored regularly during his stay. Lactic acid was 1.1. Microbiologic studies showed Pseudomonas aeruginosa on sputum culture, which showed no resistance to any antibiotics. CT scan done inpatient, showed COPD in the left lung apex. Retrocardiac mass noted on the medial basilar segment of the lower lobe. Questionable pneumonia. Ectasia of the ascending thoracic aorta, 4 cm in diameter. BRIEF HOSPITAL COURSE: The patient was admitted under medical-surgical bed. He was started on Zosyn. Sputum cultures and blood cultures were obtained. His home medications were continued during his stay for his hypertension, and warfarin anticoagulation. He was also continued on his CPAP for his obstructive sleep apnea. Given his underlying diagnosis of COPD, he was also started on high-dose steroids, and GI prophylaxis with omeprazole. Subsequently, the patient noticed some improvement of the breathing. He was also encouraged to do incentive spirometry and flutter valve. He denies any chest pain, continuously getting better. Given the abnormal CAT scan, was advised to have a repeat CT scan to follow this mass, and possible deferral to Pulmonology. Steroid dose was persistently being tapered down. Vital signs on discharge; blood pressure 140/91, heart rate of 80 beats per minute, respirations 20 breaths per minute, oxygen saturation 96%, temperature 98.7. DISCHARGE PLAN: The patient is stable to be discharged home. Follow up with primary care provider within 1 to 2 weeks from discharge. Continue with spirometry and flutter valve. Monitor for intolerance from medication to come back to the emergency room if with emergent health concerns. [facility] /[id number] RENE
== END 2017-06-06 12:40 | disposition home or self-care (01) | DRG 190 ==
LOC: DL.ED 16:36 → DL.MS 20:35 → UNDOADMIN 20:35 → DL.MS 21:58
PROVIDERS: ADMIT Internal Medicine; ATTEND Internal Medicine
DX: J44.0 Chronic obstructive pulmonary disease with (acute) lower respiratory infection (principal); J18.9 Pneumonia, unspecified organism; J44.1 Chronic obstructive pulmonary disease with (acute) exacerbation; Z87.891 Personal history of nicotine dependence; R91.8 Other nonspecific abnormal finding of lung field; I12.9 Hypertensive chronic kidney disease with stage 1 through stage 4 chronic kidney disease, or unspecified chronic kidney disease; N18.9 Chronic kidney disease, unspecified; E78.5 Hyperlipidemia, unspecified; Z86.711 Personal history of pulmonary embolism; Z79.01 Long term (current) use of anticoagulants; E66.9 Obesity, unspecified; G47.33 Obstructive sleep apnea (adult) (pediatric); Z88.2 Allergy status to sulfonamides; Z91.09 Other allergy status, other than to drugs and biological substances; Z79.899 Other long term (current) drug therapy
CPT/HCPCS: 71260; 99285; 96365; 99284; 85025; 85610; 36415; 80053; 83615; 83605; 86140; 87205; 87070; 87186; 87040 ×2; Q9967; J7050; J2543; 80048; 85027; 87077; 94640; A9270-GY; J2920

== ENCOUNTER 2017-06-11 11:30 | Observation (INO) | payer MEDICARE, BC ==
[2017-06-11] MEDS ORDERED: Sodium Chloride 0.9% 10 ML Syringe FLUSH PRN (11:35)
[2017-06-11] MEDS ORDERED: Diltiazem 25 MG/5 ML SDV IVPUSH ONE (11:39)
--- NOTE | 2017-06-11 11:58 | EDM.PDOC ---
ED HPI GENERAL MEDICAL PROBLEM - General Chief Complaint: Cardiovascular Problem Stated Complaint: FROM CLINIC Time Seen by Provider: 06/11/17 11:57 Source of Information: Reports: Patient, RN, RN Notes Reviewed History Limitations: Reports: No Limitations - History of Present Illness INITIAL COMMENTS - FREE TEXT/NARRATIVE: Patient present to the ER from [facility] after seeing Doris Lambert NP. Report from Doris Lambert was that the patient was seen in the clinic for c/o a UTI. He was having some urinary retention so was unable to get a sample. When worked up by the nurse the pt was found to have a rapid irregular heartrate. An EKG was done and found to be in Atrial Fibrillation with RVR. Patient reports a recent fever and chills. He denies chest pain, but admits to sob at times. He denies N/V/D. He states he has some lower abdominal pain from not being able to urinate. Onset: Gradual Right Anterior Chest Pain Score (Numeric/FACES): 4 - Related Data Allergies Allergy/AdvReac Type Severity Reaction Status Date / Time mercury (elemental) Allergy Unknown Rash Verified 06/11/17 12:19 [Mercury (Elemental)] Sulfa (Sulfonamide Allergy Unknown Rash Verified 06/11/17 12:19 Antibiotics) mold Allergy Sneezing Uncoded 06/11/17 12:19 Home Meds: Home Meds Folic Acid 1 mg PO DAILY 03/30/14 [History] Lisinopril 5 mg PO DAILY 03/30/14 [History] Loratadine/Pseudoephedrine [Claritin-D 24 Hour Tablet] 1 tab PO DAILY PRN [History] Tamsulosin [Flomax] 0.4 mg PO DAILY 03/30/14 [History] Tiotropium [Spiriva Handihaler] 1 cap INH DAILY 03/30/14 [History] Warfarin Sodium 5 mg PO ASDIRECTED 03/30/14 [History] Acetaminophen/Diphenhydramine [Tylenol Pm Ex-Strength Caplet] 2 tab PO DAILY PRN MDD 1000 mg 09/21/15 [History] Warfarin [Coumadin] 2.5 mg PO ASDIRECTED 09/21/15 [History] Albuterol/Ipratropium [DuoNeb 3.0-0.5 MG/3 ML] 3 ml NEB Q4HRRT PRN #60 neb 06/06 [Rx] Amoxicillin/Clavulanate K [Augmentin 875 MG/125 MG] 1 tab PO Q12HR #14 tablet [Rx] methylPREDNISolone [Medrol] 4 mg PO ASDIRECTED #21 dosepk 06/06/17 [Rx] Doxycycline [Vibramycin] 100 mg PO Q12HR 06/11/17 [History] Famotidine 20 mg PO DAILY 06/11/17 [History] Prednisone [IJD: Prednisone] 5 mg PO DAILY 06/11/17 [History] traMADol [Ultram] 50 mg PO Q12HR PRN 06/11/17 [History] Past Medical History HEENT History: Reports: Hard of Hearing, Impaired Vision, Other (See Below) Other HEENT History: TOGIAK to the right ear, sees well with glasses Cardiovascular History: Reports: Blood Clots/VTE/DVT, CAD, High Cholesterol, Hypertension, [place], SOB on Exertion Respiratory History: Reports: Bronchitis, Recurrent, COPD, PE, Pneumonia, Recurrent, Sleep Apnea, SOB Gastrointestinal History: Reports: GERD, Hemorrhoids Genitourinary History: Reports: BPH, Other (See Below) Other Genitourinary History: kidney disease Musculoskeletal History: Reports: Back Pain, Chronic, Osteoarthritis Endocrine/Metabolic History: Reports: Obesity/BMI 30+ Hematologic History: Reports: Folic Acid Oncologic (Cancer) History: Reports: Basal Cell Carcinoma Dermatologic History: Reports: Other (See Below) Other Dermatologic History: skin cancer removed from nose, right hip has bandage to right hip it drains thick, white/yellow drainage - Infectious Disease History Infectious Disease History: Reports: Measles - Past Surgical History HEENT Surgical History: Reports: Tonsillectomy Cardiovascular Surgical History: Reports: None Respiratory Surgical History: Reports: Other (See Below) Other Respiratory Surgeries/Procedures: broncoscopy GI Surgical History: Reports: Appendectomy, Cholecystectomy, Colonoscopy, EGD, Hernia, Inguinal Other GI Surgeries/Procedures: right inguinal suregery Male Surgical History: Reports: Other (See Below) Other Male Surgeries/Procedures: kidney disease. slow bladder flow Endocrine Surgical History: Reports: None Musculoskeletal Surgical History: Reports: Arthroscopic Knee, Hip Replacement, Knee Replacement Other Musculoskeletal Surgeries/Procedures:: right hip replaced in 1989, left knee and arthroscopic suregery Dermatological Surgical History: Reports: Skin Biopsy Social & Family History - Family History Family Medical History: Noncontributory HEENT: Reports: None Cardiac: Reports: [place] GI: Reports: Other (See Below) Other GI Family History: mother had stomach ulcers OBGYN: Reports: None Musculoskeletal: Reports: Osteoarthritis Neurological: Reports: CVA Hematologic: Reports: None Oncologic: Reports: Bladder, Brain, Colon, Prostate, Other (See Below) Other Oncologic Family History: throat and bladder cancer - Tobacco Use Smoking Status *Q: Former Smoker Years of Tobacco use: 30 Packs/Tins Daily: 1 Used Tobacco, but Quit: Yes Month Tobacco Last Used: Nov. Second Hand Smoke Exposure: No - Caffeine Use Caffeine Use: Reports: Coffee - Alcohol Use Days Per Week of Alcohol Use: 1 Number of Drinks Per Day: 1 Total Drinks Per Week: 1 - Recreational Drug Use Recreational Drug Use: No - Living Situation & Occupation Living situation: Reports: , with Spouse Occupation: Retired ED ROS GENERAL - Review of Systems Review Of Systems: ROS reveals no pertinent complaints other than HPI. ED EXAM, GENERAL - Physical Exam Exam: See Below Exam Limited By: No Limitations General Appearance: Alert, WD/WN, No Apparent Distress Eye Exam: Bilateral Eye: Normal Inspection, PERRL Ears: Normal External Exam, Hearing Grossly Normal Nose: Normal Inspection Throat/Mouth: Normal Inspection, No Airway Compromise. No: Normal Voice (Raspy) Head: Atraumatic, Normocephalic Neck: Normal Inspection, Supple, Non-Tender, Full Range of Motion Respiratory/Chest: No Respiratory Distress, Decreased Breath Sounds, Crackles, Wheezing Cardiovascular: Normal Peripheral Pulses, Irregularly Irregular Peripheral Pulses: 2+: Radial (L), Radial (R) GI/Abdominal: Normal Bowel Sounds, Tender, Other (urinary retention) (Male) Exam: Deferred Rectal (Males) Exam: Deferred Back Exam: Normal Inspection, Full Range of Motion, CVA Tenderness (L), CVA Tenderness (R) Extremities: Normal Inspection, Normal Range of Motion, Non-Tender, No Pedal Edema, Normal Capillary Refill Neurological: Alert, Oriented, Normal Cognition, Normal Gait, No Motor/Sensory Deficits Psychiatric: Normal Affect, Normal Mood Skin Exam: Warm, Dry, Intact, Normal Color, No Rash Lymphatic: No Adenopathy EKG INTERPRETATION EKG Date: 06/11/17 Time: 11:36 Rhythm: A-Fib Rate (Beats/Min): 162 Comparison: Change From Previous EKG EKG Interpretation Comments: A fib with RVR Course - Vital Signs Last Recorded V/S: Last Vital Signs Temp 99.6 F 06/11/17 13:25 Pulse 165 H 06/11/17 13:25 Resp 19 06/11/17 13:25 BP 136/76 06/11/17 13:25 Pulse Ox 95 06/11/17 13:25 - Orders/Labs/Meds Orders: Active Orders 24 hr Category Date Time Status EKG Documentation Completion [RC] STAT Care 06/11/17 11:35 Active EKG Documentation Completion [RC] STAT Care 06/11/17 13:52 Ordered Insert Stallings Catheter [Insert Urinary Catheter] [OM.PC] Care 06/11/17 11:45 Ordered Q24H Peripheral IV Care [RC] . DIRECTED Care 06/11/17 11:36 Active Urinary Catheter Assessment [RC] ASDIRECTED Care 06/11/17 11:41 Active Chest 1V Frontal [CR] Stat Exams 06/11/17 12:32 Taken CULTURE BLOOD [BC] Stat Lab 06/11/17 12:46 Received CULTURE BLOOD [BC] Stat Lab 06/11/17 12:46 Received Sodium Chloride 0.9% [Saline Flush] Med 06/11/17 11:35 Active 10 ml FLUSH ASDIRECTED PRN Blood Culture x2 Reflex Set [OM.PC] Stat Oth 06/11/17 12:33 Ordered Peripheral IV Insertion Adult [OM.PC] Stat Oth 06/11/17 11:35 Ordered Medication Orders Sodium Chloride (Saline Flush) 10 ml FLUSH ASDIRECTED PRN PRN Reason: Keep Vein Open Last Admin: 06/11/17 12:35 Dose: 10 ml Labs: Laboratory Tests 06/11/17 06/11/17 06/11/17 Range/Units 11:50 11:50 11:50 WBC 23.7 H (5.0-10.0) 10^3/uL RBC 5.37 (4.6-6.2) 10^6/uL Hgb 16.6 (14.0-18.0) g/dL Hct 49.0 (40.0-54.0) % MCV 91.2 (80-100) fL MCH 30.9 (27.0-34.0) pg MCHC 33.9 (33.0-35.0) g/dL Plt Count 277 (150-450) 10^3/uL Neut % (Auto) 82.2 H (42.2-75.2) % Lymph % (Auto) 5.6 L (20.5-50.1) % [place] % (Auto) 11.9 H (2-8) % Eos % (Auto) 0.1 L (1.0-3.0) % Baso % (Auto) 0.2 (0.0-1.0) % Add Manual Diff Yes Neutrophils % (Manual) 74 (42-75) % Lymphocytes % (Manual) 10 L (20-50) % Monocytes % (Manual) 16 H (2-8) % Vacuolated Monocytes 1+ slight Toxic Granulation 1+ slight Platelet Estimate Adequate Giant Platelets Few Tear Drop Cells 2+ moderate PT 26.3 H (9.0-12.0) SEC INR 2.6 H (0.9-1.2) Sodium 133 L (135-145) mmol/L Potassium 4.0 (3.6-5.0) mmol/L Chloride 101 (101-111) mmol/L Carbon Dioxide 23.0 (21.0-31.0) mmol/L Anion Gap 13.0 BUN 22 H (7-18) mg/dL Creatinine 0.9 (0.6-1.3) mg/dL Est Cr Clr Drug Dosing 71.40 mL/min Estimated GFR (MDRD) > 60 BUN/Creatinine Ratio 24.44 Glucose 99 (74-105) mg/dL Lactic Acid (0.5-2.2) mmol/L Calcium 8.6 (8.4-10.2) mg/dl Total Bilirubin 1.4 H (0.2-1.0) mg/dL AST 27 (10-42) IU/L ALT 38 (10-60) IU/L Alkaline Phosphatase 64 (42-121) IU/L Troponin I < 0.02 (0.00-0.02) ng/ml Total Protein 7.4 (6.7-8.2) g/dl Albumin 3.1 L (3.2-5.5) g/dl Globulin 4.3 Albumin/Globulin Ratio 0.72 Urine Color (YELLOW) Urine Appearance (CLEAR) Urine pH (5.0-9.0) Ur Specific [place] (1.005-1.030) Urine Protein (NEGATIVE) Urine Glucose (UA) (NEGATIVE) Urine Ketones (NEGATIVE) Urine Occult Blood (NEGATIVE) Urine Nitrite (NEGATIVE) Urine Bilirubin (NEGATIVE) Urine Urobilinogen (0.2-1.0) mg/dL Ur Leukocyte Esterase (NEGATIVE) Urine RBC /HPF Urine WBC (0-5/HPF) /HPF Ur Epithelial Cells /HPF Urine Bacteria (0-FEW/HPF) /HPF Fine Granular Casts (0/LPF) /LPF Urine Mucus /LPF 06/11/17 06/11/17 Range/Units 12:01 12:46 WBC (5.0-10.0) 10^3/uL RBC (4.6-6.2) 10^6/uL Hgb (14.0-18.0) g/dL Hct (40.0-54.0) % MCV (80-100) fL MCH (27.0-34.0) pg MCHC (33.0-35.0) g/dL Plt Count (150-450) 10^3/uL Neut % (Auto) (42.2-75.2) % Lymph % (Auto) (20.5-50.1) % [place] % (Auto) (2-8) % Eos % (Auto) (1.0-3.0) % Baso % (Auto) (0.0-1.0) % Add Manual Diff Neutrophils % (Manual) (42-75) % Lymphocytes % (Manual) (20-50) % Monocytes % (Manual) (2-8) % Vacuolated Monocytes Toxic Granulation Platelet Estimate Giant Platelets Tear Drop Cells PT (9.0-12.0) SEC INR (0.9-1.2) Sodium (135-145) mmol/L Potassium (3.6-5.0) mmol/L Chloride (101-111) mmol/L Carbon Dioxide (21.0-31.0) mmol/L Anion Gap BUN (7-18) mg/dL Creatinine (0.6-1.3) mg/dL Est Cr Clr Drug Dosing mL/min Estimated GFR (MDRD) BUN/Creatinine Ratio Glucose (74-105) mg/dL Lactic Acid 1.2 (0.5-2.2) mmol/L Calcium (8.4-10.2) mg/dl Total Bilirubin (0.2-1.0) mg/dL AST (10-42) IU/L ALT (10-60) IU/L Alkaline Phosphatase (42-121) IU/L Troponin I (0.00-0.02) ng/ml Total Protein (6.7-8.2) g/dl Albumin (3.2-5.5) g/dl Globulin Albumin/Globulin Ratio Urine Color Yellow (YELLOW) Urine Appearance Slightly cloudy (CLEAR) Urine pH 5.5 (5.0-9.0) Ur Specific [place] 1.025 (1.005-1.030) Urine Protein 100 H (NEGATIVE) Urine Glucose (UA) Negative (NEGATIVE) Urine Ketones Trace H (NEGATIVE) Urine Occult Blood Moderate H (NEGATIVE) Urine Nitrite Negative (NEGATIVE) Urine Bilirubin Small H (NEGATIVE) Urine Urobilinogen 0.2 (0.2-1.0) mg/dL Ur Leukocyte Esterase Negative (NEGATIVE) Urine RBC 5-10 H /HPF Urine WBC 0-5 (0-5/HPF) /HPF Ur Epithelial Cells Rare /HPF Urine Bacteria Few (0-FEW/HPF) /HPF Fine Granular Casts Few H (0/LPF) /LPF Urine Mucus Few H /LPF Meds: Medications Generic Name Dose Route Start Last Admin Trade Name Freq PRN Reason Stop Dose Admin Sodium Chloride 10 ml 06/11/17 11:35 06/11/17 12:35 Saline Flush FLUSH 10 ml ASDIRECTED PRN Administration Keep Vein Open Discontinued Medications Generic Name Dose Route Start Last Admin Trade Name Freq PRN Reason Stop Dose Admin Diltiazem HCl 20 mg 06/11/17 11:39 06/11/17 11:54 Diltiazem IVPUSH 06/11/17 11:40 20 mg ONETIME ONE Administration Diltiazem HCl 100 mg/ Sodium 100 mls @ 5 mls/hr 06/11/17 12:30 06/11/17 12:32 Chloride IV 5 mg/hr TITRATE EMMY 5 mls/hr Protocol Administration 5 MG/HR Metoprolol Tartrate 5 mg 06/11/17 13:52 Lopressor IVPUSH 06/11/17 13:53 ONETIME ONE Departure - Departure Time of Disposition: 13:53 Disposition: Admitted As Inpatient 67 Condition: Fair Clinical Impression: Atrial fibrillation with RVR Forms: ED Department Discharge - My Orders Last 24 Hours: My Active Orders 06/11/17 11:35 EKG Documentation Completion [RC] STAT Sodium Chloride 0.9% [Saline Flush] 10 ml FLUSH ASDIRECTED PRN Peripheral IV Insertion Adult [OM.PC] Stat 06/11/17 11:36 Peripheral IV Care [RC] . DIRECTED 06/11/17 11:41 Urinary Catheter Assessment [RC] ASDIRECTED 06/11/17 11:45 Insert Stallings Catheter [Insert Urinary Catheter] [OM.PC] Q24H 06/11/17 12:32 Chest 1V Frontal [CR] Stat 06/11/17 12:33 Blood Culture x2 Reflex Set [OM.PC] Stat 06/11/17 12:46 CULTURE BLOOD [BC] Stat CULTURE BLOOD [BC] Stat 06/11/17 13:52 EKG Documentation Completion [RC] STAT - Assessment/Plan Last 24 Hours: My Active Orders 06/11/17 11:35 EKG Documentation Completion [RC] STAT Sodium Chloride 0.9% [Saline Flush] 10 ml FLUSH ASDIRECTED PRN Peripheral IV Insertion Adult [OM.PC] Stat 06/11/17 11:36 Peripheral IV Care [RC] . DIRECTED 06/11/17 11:41 Urinary Catheter Assessment [RC] ASDIRECTED 06/11/17 11:45 Insert Stallings Catheter [Insert Urinary Catheter] [OM.PC] Q24H 06/11/17 12:32 Chest 1V Frontal [CR] Stat 06/11/17 12:33 Blood Culture x2 Reflex Set [OM.PC] Stat 06/11/17 12:46 CULTURE BLOOD [BC] Stat CULTURE BLOOD [BC] Stat 06/11/17 13:52 EKG Documentation Completion [RC] STAT
[2017-06-11 12:16] LABS: CHLORIDE,CL 101 mmol/L (101-111); SODIUM,NA 133 mmol/L (135-145)
[2017-06-11] MEDS ORDERED: Diltiazem 100 MG in Sodium Chloride 0.9% 100 ML IV SCH (12:30)
[2017-06-11] MEDS ORDERED: Metoprolol Tartrate 5 MG/5 ML SDV IVPUSH ONE (13:52)
[2017-06-11] MEDS ORDERED: Ondansetron 4 MG/2 ML SDV IVPUSH PRN (14:00)
[2017-06-11] MEDS ORDERED: Acetaminophen 325 MG Tab PO PRN (14:00)
[2017-06-11] MEDS ORDERED: traMADol 50 MG Tab PO PRN (14:06)
[2017-06-11] MEDS ORDERED: LORATADINE PO PRN (14:06)
[2017-06-11] MEDS ORDERED: Acetaminophen 500 MG Tab PO PRN (14:06)
[2017-06-11] MEDS ORDERED: PSEUDOEPHEDRINE PO PRN (14:06)
[2017-06-11] MEDS ORDERED: diphenhydrAMINE 25 MG Tab PO PRN (14:22)
[2017-06-11] MEDS: Heparin Sodium 5,000 Units/ML Vial SUBCUT SCH ×2 (15:42→21:20)
[2017-06-11] MEDS: Diltiazem 120 MG Cap.CD PO SCH (16:33)
[2017-06-11] MEDS: Doxycycline 100 MG Cap PO SCH (21:19)
[2017-06-11] MEDS: Amoxicillin/Clavulanate K 875-125 MG Tab PO SCH (21:20)
[2017-06-11] MEDS: Ciprofloxacin 500 MG Tab PO SCH (21:20)
--- NOTE | 2017-06-11 22:15 | HP ---
CHIEF COMPLAINT: Inability to urinate. HISTORY OF PRESENT ILLNESS: Mr. Kalpesh Euceda is a 71-year-old man with medical history of paroxysmal atrial fibrillation, COPD, hypertension, and chronic kidney disease. The patient is on chronic anticoagulation because of previous thromboembolism. He was seen in the clinic today, complained of difficulty urinating. This has been going on for about 1 week. Some times, he is able to urinate a little bit; at most times, not. He feels that he does not empty his bladder completely. The patient was bladder scanned and had a Stallings catheter placement, which put just more than 500 mL of urine. He was also noted to be tachycardic, and EKG suggested atrial fibrillation with rapid ventricular response. White cell count is 20,000. Does have mild cough. Cough is mostly productive of clear colored sputum. He was recently in the hospital for pneumonia and he is still taking oral antibiotics. He was on Augmentin as well as doxycycline. REVIEW OF SYSTEMS: Constitutional, cardiac, respiratory, gastrointestinal, genitourinary, neurologic, psychiatric, endocrine, allergy, and immunology were reviewed. No other pertinent findings except as noted above. FAMILY HISTORY: Reviewed and considered noncontributory. SOCIAL HISTORY: He was a smoker. He is . PAST MEDICAL HISTORY: Hypertension, COPD, chronic kidney disease, history of pulmonary embolism, chronic anticoagulation. Recent pneumonia. OBJECTIVE: General: The patient is alert, oriented to place, time, and person. Head: Atraumatic and normocephalic. Ear, Nose, and Throat: Unremarkable. Neck: Supple. Chest: Diminished breath sounds bilaterally. Occasional expiratory rhonchi. CVS: Regular rate and rhythm. No S3 or S4. He is tachycardic now with the rate of 100 per minute. Abdomen: Soft and nontender. Extremities: No pedal edema. No finger clubbing. Skin: No rash. Neuro: Symmetric strength in all extremities. Endocrine: No thyromegaly. Vital Signs: Reviewed. Heart rate of 130 per minute. Currently at 100 per minute. Regular rate at this time. LABORATORY DATA: White count is 23,000. Hemoglobin is normal. Creatinine is 2.5. ASSESSMENT: Chest x-ray reviewed. No definite new infiltrate noted. Actually improved compared to prior study. ASSESSMENT: 1. Urinary retention. The patient is doing more than 500 mL of urine. This is secondary to benign prostatic hypertrophy. 2. Hypertension. Blood pressures were mostly within acceptable limit. 3. Atrial fibrillation with rapid ventricular response. This was transient. He was started on intravenous Cardizem and converted back to sinus rhythm. Currently in sinus tachycardia. 4. Chronic obstructive pulmonary disease. He was an active smoker. 5. History of pulmonary embolism, on chronic anticoagulation. 6. Chronic anticoagulation. INR is 2.6. 7. Chronic kidney disease. 8. Obstructive sleep apnea. PLAN: 1. Admit the patient to medical floor. 2. Leave Stallings catheter in place. 3. The patient would need a urology consult post discharge. 4. Start intravenous ciprofloxacin. 5. Continue Augmentin. 6. His white cell count is elevated out to 23,000, I think it is because of the steroids that he has been taking. He is on tapering dose of steroid. I will add additional gram-negative coverage to Augmentin. 7. Obtain PT/INR. 8. Obtain urine cultures. Now, he has 5 to 10 white cells in the urine. [facility] /[id number]
[2017-06-12] MEDS: Heparin Sodium 5,000 Units/ML Vial SUBCUT SCH (06:59)
[2017-06-12] MEDS: Diltiazem 120 MG Cap.CD PO SCH (08:47)
[2017-06-12] MEDS: Amoxicillin/Clavulanate K 875-125 MG Tab PO SCH (08:47)
[2017-06-12] MEDS: Ciprofloxacin 500 MG Tab PO SCH (08:49)
[2017-06-12] MEDS: Doxycycline 100 MG Cap PO SCH (08:50)
[2017-06-12] MEDS ORDERED: Tamsulosin 0.4 MG Cap.ER PO SCH (09:00)
[2017-06-12] MEDS ORDERED: Folic Acid 1 MG Tab PO SCH (09:00)
[2017-06-12] MEDS ORDERED: Tiotropium Inhaler 18 MCG Inhalation Powder Cap Kit of 5 INH SCH (09:00)
[2017-06-12] MEDS ORDERED: predniSONE 5 MG Tab PO SCH (09:00)
[2017-06-12] MEDS ORDERED: Famotidine 20 MG Tab PO SCH (09:00)
[2017-06-12] MEDS ORDERED: Lisinopril 5 MG Tab PO SCH (09:00)
--- NOTE | 2017-06-12 10:24 | PCM.DCSUM1 ---
Discharge Summary - Hospital Course Free Text/Narrative:: Patient was admitted with urinary retention and atrial fibrillation with rapid ventricular response We proceeded to place a Stallings catheter. He will have the catheter forp to 14 days and follow up with urology For A fib, Patient was given intravenous Cardizem. At discharge I switched him to oral Cardizem. I discontinued lisinopril. He is aback in sinus rhythm. He was also started on finasteride I will continue with tamsulosin. His white cell count was elevated TO 23,000. This was thought to be due to steroids. His chest x-ray actually did show improvement. I discontinued Augmentin started the patient on levofloxacin. He would take this for 8 days HPI Initial Comments: See above - Discharge Data Discharge Date: 06/12/17 Discharge Disposition: Home, Self-Care 01 Condition: Fair - Patient Instructions Diet: Heart Healthy Diet Activity: As Tolerated Driving: May Drive Today Showering/Bathing: May Shower Notify Provider of: Fever, Swelling and Redness, Nausea and/or Vomiting - Discharge Plan Prescriptions/Med Rec: Finasteride [Proscar] 5 mg PO BEDTIME #60 tablet Levofloxacin [IJD: Levofloxacin] 750 mg PO Q48H #8 tab Home Medications: Home Meds Folic Acid 1 mg PO DAILY 03/30/14 [History] Loratadine/Pseudoephedrine [Claritin-D 24 Hour Tablet] 1 tab PO DAILY PRN [History] Tamsulosin [Flomax] 0.4 mg PO DAILY 03/30/14 [History] Tiotropium [Spiriva Handihaler] 1 cap INH DAILY 03/30/14 [History] Warfarin Sodium 5 mg PO ASDIRECTED 03/30/14 [History] Acetaminophen/Diphenhydramine [Tylenol Pm Ex-Strength Caplet] 2 tab PO DAILY PRN MDD 1000 mg 09/21/15 [History] Warfarin [Coumadin] 2.5 mg PO ASDIRECTED 09/21/15 [History] Albuterol/Ipratropium [DuoNeb 3.0-0.5 MG/3 ML] 3 ml NEB Q4HRRT PRN #60 neb 06/06 [Rx] methylPREDNISolone [Medrol] 4 mg PO ASDIRECTED #21 dosepk 06/06/17 [Rx] Doxycycline [Vibramycin] 100 mg PO Q12HR 06/11/17 [History] Famotidine 20 mg PO DAILY 06/11/17 [History] Prednisone [IJD: Prednisone] 5 mg PO DAILY 06/11/17 [History] traMADol [Ultram] 50 mg PO Q12HR PRN 06/11/17 [History] Finasteride [Proscar] 5 mg PO BEDTIME #60 tablet 06/12/17 [Rx] Levofloxacin [IJD: Levofloxacin] 750 mg PO Q48H #8 tab 06/12/17 [Rx] Referrals: Cindy Sanchez MD [Primary Care Provider] - - Review of Systems General: Reports: No Symptoms Pulmonary: Reports: Shortness of Breath Cardiovascular: Reports: No Symptoms Gastrointestinal: Reports: No Symptoms - Patient Data Vitals - Most Recent: Last Vital Signs Temp 36.6 C 06/12/17 07:00 Pulse 78 06/12/17 08:47 Resp 20 06/12/17 07:00 BP 109/70 06/12/17 08:50 Pulse Ox 94 L 06/12/17 07:00 Weight - Most Recent: 105.097 kg I&O - Last 24 hours: Intake & Output 06/11/17 06/12/17 06/12/17 22:59 06:59 14:59 Intake Total 150 200 Output Total 450 325 Balance -450 -175 200 Lab Results - Last 24 hrs: Laboratory Results - last 24 hr 06/11/17 06/11/17 06/12/17 Range/Units 14:25 20:00 06:00 WBC 22.1 H (5.0-10.0) 10^3/uL RBC 4.98 (4.6-6.2) 10^6/uL Hgb 15.4 (14.0-18.0) g/dL Hct 46.1 (40.0-54.0) % MCV 92.6 (80-100) fL MCH 30.9 (27.0-34.0) pg MCHC 33.4 (33.0-35.0) g/dL Plt Count 286 (150-450) 10^3/uL Neut % (Auto) 82.6 H (42.2-75.2) % Lymph % (Auto) 7.1 L (20.5-50.1) % [place] % (Auto) 9.2 H (2-8) % Eos % (Auto) 0.7 L (1.0-3.0) % Baso % (Auto) 0.4 (0.0-1.0) % Add Manual Diff Yes Neutrophils % (Manual) 78 H (42-75) % Band Neutrophils % 3 % Lymphocytes % (Manual) 11 L (20-50) % Monocytes % (Manual) 7 (2-8) % Basophils % (Manual) 1 Atypical Lymphocytes Few Toxic Granulation 1+ slight Platelet Estimate Adequate Carly Cells Few Troponin I < 0.02 < 0.02 (0.00-0.02) ng/ml Med Orders - Current: Current Medications Acetaminophen (Tylenol) 650 mg PO Q4H PRN PRN Reason: Pain (Mild 1-3)/fever Acetaminophen (Tylenol Extra Strength) 1,000 mg PO BEDTIME PRN PRN Reason: Sleep Last Admin: 06/11/17 21:21 Dose: 1,000 mg Amoxicillin/Clavulanate Potassium (Augmentin 875 Mg/125 Mg) 1 tab PO Q12HR [facility] Last Admin: 06/12/17 08:47 Dose: 1 tab Ciprofloxacin (Ciprofloxacin Hcl) 500 mg PO BID [facility] Last Admin: 06/12/17 08:49 Dose: 500 mg Diltiazem HCl (Cardizem Cd) 120 mg PO DAILY [facility] Last Admin: 06/12/17 08:47 Dose: 120 mg Diphenhydramine HCl (Benadryl) 50 mg PO BEDTIME PRN PRN Reason: SLEEP Last Admin: 06/11/17 21:22 Dose: 50 mg Doxycycline Hyclate (Vibramycin) 100 mg PO Q12HR [facility] Last Admin: 06/12/17 08:50 Dose: 100 mg Famotidine (Pepcid) 20 mg PO DAILY [facility] Last Admin: 06/12/17 08:50 Dose: 20 mg Folic Acid (Folic Acid) 1 mg PO DAILY [facility] Last Admin: 06/12/17 08:49 Dose: 1 mg Heparin Sodium (Porcine) (Heparin Sodium) 5,000 units SUBCUT Q8HR [facility] Last Admin: 06/12/17 06:59 Dose: 5,000 units Lisinopril (Prinivil) 5 mg PO DAILY [facility] Last Admin: 06/12/17 08:50 Dose: 5 mg Ondansetron HCl (Zofran) 4 mg IVPUSH Q6H PRN PRN Reason: Nausea/Vomiting Loratadine/Pseudoephedrine [ Claritin-D 24 Hour Tablet]Pt's Own Med 1 each PO DAILY PRN PRN Reason: Rhinitis Prednisone (Prednisone) 5 mg PO DAILY [facility] Last Admin: 06/12/17 08:50 Dose: 5 mg Sodium Chloride (Saline Flush) 10 ml FLUSH ASDIRECTED PRN PRN Reason: Keep Vein Open Last Admin: 06/11/17 12:35 Dose: 10 ml Tamsulosin HCl (Flomax) 0.4 mg PO DAILY [facility] Last Admin: 06/12/17 08:49 Dose: 0.4 mg Tiotropium [place] (Spiriva Handihaler) 18 mcg INH DAILY [facility] Last Admin: 06/12/17 08:55 Dose: 18 mcg Tramadol HCl (Ultram) 50 mg PO Q12HR PRN PRN Reason: Pain Warfarin Sodium (Coumadin) 2.5 mg PO MoFr@1400 EMMY Warfarin Sodium (Coumadin) 5 mg PO SuTuWeThSa@1400 [facility] Discontinued Medications Diltiazem HCl (Diltiazem) 20 mg IVPUSH ONETIME ONE Stop: 06/11/17 11:40 Last Admin: 06/11/17 11:54 Dose: 20 mg Diltiazem HCl 100 mg/ Sodium (Chloride) 100 mls @ 5 mls/hr IV TITRATE EMMY; 5 MG /HR PRN Reason: Protocol Last Admin: 06/11/17 12:32 Dose: 5 mg/hr, 5 mls/hr Metoprolol Tartrate (Lopressor) 5 mg IVPUSH ONETIME ONE Stop: 06/11/17 13:53 Last Admin: 06/11/17 14:10 Dose: 5 mg - Exam General: Reports: Cooperative Neck: Reports: Supple Lungs: Reports: Normal Respiratory Effort GI/Abdominal Exam: Normal Bowel Sounds (Male) Exam: Other Extremities: Normal Inspection *Q Meaningful Use (DIS) - VTE *Q VTE Criteria *Q: - Stroke *Q Stroke Criteria *Q: - AMI *Q AMI Criteria *Q:
[2017-06-12 10:48] VITALS: BP 116/68
--- NOTE | 2017-06-12 11:23 | EKG ---
06/11/2017 - VIGNESH CARLOS - TIME: 1353 hours EKG shows a normal sinus rhythm. [facility] /[id number]
--- NOTE | 2017-06-12 11:26 | EKG ---
06/11/2017 - VIGNESH CARLOS - TIME: 11:36 p.m. EKG shows atrial fibrillation with rapid ventricular response. Heart rate is 162 per minute. [facility] /[id number]
[2017-06-12] MEDS ORDERED: Warfarin 5 MG Tab PO SCH (14:00)
[2017-06-13] MEDS ORDERED: Warfarin 2.5 MG Tab PO SCH (14:00)
== END 2017-06-12 12:51 | disposition home or self-care (01) ==
LOC: DL.ED 11:30 → DL.MS 14:00
PROVIDERS: ADMIT Hospitalist; ATTEND Hospitalist
DX: I48.91 Unspecified atrial fibrillation (principal); N40.1 Benign prostatic hyperplasia with lower urinary tract symptoms; R33.8 Other retention of urine; J18.9 Pneumonia, unspecified organism; J44.9 Chronic obstructive pulmonary disease, unspecified; N18.9 Chronic kidney disease, unspecified; I12.9 Hypertensive chronic kidney disease with stage 1 through stage 4 chronic kidney disease, or unspecified chronic kidney disease; G47.33 Obstructive sleep apnea (adult) (pediatric); K21.9 Gastro-esophageal reflux disease without esophagitis; E78.00 Pure hypercholesterolemia, unspecified; E66.9 Obesity, unspecified; Z79.899 Other long term (current) drug therapy; Z79.01 Long term (current) use of anticoagulants; Z88.2 Allergy status to sulfonamides; Z91.048 Other nonmedicinal substance allergy status; Z90.49 Acquired absence of other specified parts of digestive tract; Z98.890 Other specified postprocedural states; Z96.652 Presence of left artificial knee joint; Z96.641 Presence of right artificial hip joint; Z87.891 Personal history of nicotine dependence; Z68.30 Body mass index [BMI] 30.0-30.9, adult
CPT/HCPCS: 36415; 71010; 80053; 81001; 83605; 84484; 85025; 85610; 87040; 87086; 93005; 93010; 96365; 96366; 96372; 96375; 99285; A9270; G0378; J1644; J3490; J7050; 96376; 99217; 99284

== ENCOUNTER 2017-06-25 07:32 | Emergency (ER) | payer MEDICARE, BC ==
[2017-06-25 07:44] VITALS: BP 155/77
--- NOTE | 2017-06-25 07:44 | EDM.PDOC ---
ED HPI GENERAL MEDICAL PROBLEM - General Chief Complaint: Genitourinary Problem Stated Complaint: CATH PLUGGED Time Seen by Provider: 06/25/17 07:43 Source of Information: Reports: Patient, Family, RN, RN Notes Reviewed History Limitations: Reports: No Limitations - History of Present Illness INITIAL COMMENTS - FREE TEXT/NARRATIVE: Patient presents to the ER with c/o his jorge catheter being plugged. He states he drains the leg bag about 3 times per day. Last evening before bed he states the bag was only about half full, and this morning the bag was empty. He states he is feeling some retention, and is having urine leakage around the catheter. He states that he has had blood in his urine since he was recently on Lovenox. He also states that he has a urology appointment on Friday. He denies any further problems at this time. Onset: Gradual Onset Date: 06/24/17 Bladder Pain Score (Numeric/FACES): 4 - Related Data Allergies Allergy/AdvReac Type Severity Reaction Status Date / Time mercury (elemental) Allergy Unknown Rash Verified 06/25/17 07:41 [Mercury (Elemental)] Sulfa (Sulfonamide Allergy Unknown Rash Verified 06/25/17 07:41 Antibiotics) mold Allergy Sneezing Uncoded 06/11/17 14:50 Home Meds: Home Meds Folic Acid 1 mg PO DAILY 03/30/14 [History] Loratadine/Pseudoephedrine [Claritin-D 24 Hour Tablet] 1 tab PO DAILY PRN [History] Tamsulosin [Flomax] 0.4 mg PO DAILY 03/30/14 [History] Tiotropium [Spiriva Handihaler] 1 cap INH DAILY 03/30/14 [History] Warfarin Sodium 5 mg PO ASDIRECTED 03/30/14 [History] Acetaminophen/Diphenhydramine [Tylenol Pm Ex-Strength Caplet] 2 tab PO DAILY PRN MDD 1000 mg 09/21/15 [History] Warfarin [Coumadin] 2.5 mg PO ASDIRECTED 09/21/15 [History] Albuterol/Ipratropium [DuoNeb 3.0-0.5 MG/3 ML] 3 ml NEB Q4HRRT PRN #60 neb 06/06 [Rx] methylPREDNISolone [Medrol] 4 mg PO ASDIRECTED #21 dosepk 06/06/17 [Rx] Doxycycline [Vibramycin] 100 mg PO Q12HR 06/11/17 [History] Famotidine 20 mg PO DAILY 06/11/17 [History] Prednisone [IJD: Prednisone] 5 mg PO DAILY 06/11/17 [History] traMADol [Ultram] 50 mg PO Q12HR PRN 06/11/17 [History] Diltiazem [Cardizem CD] 120 mg PO DAILY #60 cap.cd 06/12/17 [Rx] Finasteride [Proscar] 5 mg PO BEDTIME #60 tablet 06/12/17 [Rx] Levofloxacin [IJD: Levofloxacin] 750 mg PO Q48H #8 tab 06/12/17 [Rx] Past Medical History HEENT History: Reports: Hard of Hearing, Impaired Vision, Other (See Below) Other HEENT History: [place] to the right ear, sees well with glasses Cardiovascular History: Reports: Afib, Blood Clots/VTE/DVT, CAD, High Cholesterol, Hypertension, MS, SOB on Exertion Respiratory History: Reports: Bronchitis, Recurrent, COPD, PE, Pneumonia, Recurrent, Sleep Apnea, SOB Gastrointestinal History: Reports: GERD, Hemorrhoids Genitourinary History: Reports: BPH, Other (See Below) Other Genitourinary History: kidney disease Musculoskeletal History: Reports: Back Pain, Chronic, Osteoarthritis Other Musculoskeletal History: spinal stenosis, spina bifida occulta Neurological History: Reports: None Psychiatric History: Reports: None Endocrine/Metabolic History: Reports: Obesity/BMI 30+ Hematologic History: Reports: Folic Acid Other Hematologic History: Factor V Immunologic History: Reports: None Oncologic (Cancer) History: Reports: Basal Cell Carcinoma Dermatologic History: Reports: Other (See Below) Other Dermatologic History: skin cancer removed from nose, right hip has bandage to right hip it drains thick, white/yellow drainage - Infectious Disease History Infectious Disease History: Reports: None - Past Surgical History HEENT Surgical History: Reports: Tonsillectomy Cardiovascular Surgical History: Reports: None Respiratory Surgical History: Reports: Other (See Below) Other Respiratory Surgeries/Procedures: bronchoscopy GI Surgical History: Reports: Appendectomy, Cholecystectomy, Colonoscopy, EGD, Hernia, Inguinal Other GI Surgeries/Procedures: right inguinal surgery Male Surgical History: Reports: Other (See Below) Other Male Surgeries/Procedures: kidney disease. slow bladder flow Endocrine Surgical History: Reports: None Neurological Surgical History: Reports: None Musculoskeletal Surgical History: Reports: Arthroscopic Knee, Hip Replacement, Knee Replacement Other Musculoskeletal Surgeries/Procedures:: right hip replaced in 1989, left knee and arthroscopic suregery Oncologic Surgical History: Reports: Other (See Below) Other Oncologic Surgeries/Procedures: skin cancer removal to nose Dermatological Surgical History: Reports: Skin Biopsy Social & Family History - Family History Family Medical History: Noncontributory HEENT: Reports: None Cardiac: Reports: MS GI: Reports: Other (See Below) Other GI Family History: mother had stomach ulcers OBGYN: Reports: None Musculoskeletal: Reports: Osteoarthritis Neurological: Reports: CVA Hematologic: Reports: None Oncologic: Reports: Bladder, Brain, Colon, Prostate, Other (See Below) Other Oncologic Family History: throat and bladder cancer - Tobacco Use Smoking Status *Q: Never Smoker Years of Tobacco use: 30 Packs/Tins Daily: 1 Used Tobacco, but Quit: Yes Month Tobacco Last Used: Nov. Second Hand Smoke Exposure: No - Caffeine Use Caffeine Use: Reports: Coffee, Soda - Alcohol Use Days Per Week of Alcohol Use: 3 Number of Drinks Per Day: 2 Total Drinks Per Week: 6 - Recreational Drug Use Recreational Drug Use: No - Living Situation & Occupation Living situation: Reports: , with Spouse Occupation: Retired ED ROS GENERAL - Review of Systems Review Of Systems: ROS reveals no pertinent complaints other than HPI. ED EXAM, RENAL/ - Physical Exam Exam: See Below Exam Limited By: No Limitations General Appearance: Alert, WD/WN, No Apparent Distress Eye Exam: Bilateral Eye: Normal Inspection Ears: Normal External Exam, Hearing Grossly Normal Nose: Normal Inspection Throat/Mouth: Normal Inspection, Normal Voice, No Airway Compromise Head: Atraumatic, Normocephalic Neck: Normal Inspection, Supple, Non-Tender, Full Range of Motion Respiratory/Chest: No Respiratory Distress, No Accessory Muscle Use, Chest Non- Tender, Decreased Breath Sounds Cardiovascular: Normal Peripheral Pulses, Regular Rate, Rhythm, No Edema, No Gallop, No JVD, No Murmur, No Rub GI/Abdominal: Normal Bowel Sounds, Soft, Non-Tender, Distended (Male) Exam: Deferred, Other (Dark brown urine in catheter bag) Rectal (Males) Exam: Deferred Back Exam: Normal Inspection, Full Range of Motion Extremities: Normal Inspection, Normal Range of Motion, Non-Tender, No Pedal Edema, Normal Capillary Refill Neurological: Alert, Oriented, Normal Cognition, Normal Gait, No Motor/Sensory Deficits Psychiatric: Normal Affect, Normal Mood Skin Exam: Warm, Dry, Intact, Normal Color, No Rash Lymphatic: No Adenopathy Course - Vital Signs Last Recorded V/S: Last Vital Signs Temp 97.1 F 06/25/17 07:42 Pulse 94 06/25/17 07:42 Resp 24 H 06/25/17 07:42 BP 155/77 H 06/25/17 07:42 Pulse Ox 96 06/25/17 07:42 - Re-Assessments/Exams Free Text/Narrative Re-Assessment/Exam: 06/25/17 08:09 Catheter flushed with sterile water. Minimal pressure applied with release of urine. Patient states relief after the catheter began draining. Departure - Departure Time of Disposition: 08:00 Disposition: Home, Self-Care 01 Condition: Good Clinical Impression: Retention of urine Jorge catheter problem Qualifiers: Encounter type: initial encounter Qualified Code(s): T83.9XXA - Unspecified complication of genitourinary prosthetic device, implant and graft, initial encounter - Discharge Information Instructions: Jorge Catheter Care, Adult Forms: ED Department Discharge Additional Instructions: Follow up with Urology on Friday with your already scheduled appointment. Follow up with your Primary care facility.
== END 2017-06-25 08:05 | disposition home or self-care (01) ==
LOC: DL.ED 07:32
DX: T83.031A Leakage of indwelling urethral catheter, initial encounter (principal); R33.9 Retention of urine, unspecified; E78.00 Pure hypercholesterolemia, unspecified; I48.91 Unspecified atrial fibrillation; I25.2 Old myocardial infarction; I10 Essential (primary) hypertension; J44.9 Chronic obstructive pulmonary disease, unspecified; Z88.2 Allergy status to sulfonamides; Z79.899 Other long term (current) drug therapy; Z79.01 Long term (current) use of anticoagulants; Z79.52 Long term (current) use of systemic steroids; Z87.01 Personal history of pneumonia (recurrent); E66.9 Obesity, unspecified
CPT/HCPCS: 99283

== ENCOUNTER 2019-10-22 11:27 | Emergency (ER) | payer MEDICARE, BC ==
[2019-10-22 11:36] VITALS: BP 174/81; PULSE 88
--- NOTE | 2019-10-22 11:56 | EDM.PDOC ---
<Harjit Valdovinos - Last Filed: 10/22/19 12:28> ED HPI GENERAL MEDICAL PROBLEM - General Chief Complaint: Upper Extremity Injury/Pain Stated Complaint: TRIPPED AND HURT SHOULDER Time Seen by Provider: 10/22/19 11:49 Source of Information: Reports: Patient, RN, RN Notes Reviewed History Limitations: Reports: No Limitations - History of Present Illness INITIAL COMMENTS - FREE TEXT/NARRATIVE: 74 year old male presents to the ER with complaints of left shoulder pain after a fall. He did not fall on his shoulder but caught himself with his left arm and now has pain with movement. He has no sensory loss, numbness or tingly feeling in his left arm and has intact distal pulses. Denies any prior injury or trauma to left shoulder. No other symptoms at this time. Denies hitting his head or LOC Onset: Today Duration: Constant Location: Reports: Upper Extremity, Left Quality: Reports: Ache Severity: Mild Improves with: Reports: None Worsens with: Reports: None Associated Symptoms: Reports: No Other Symptoms Left Shoulder Pain Score (Numeric/FACES): 8 - Related Data Allergies Allergy/AdvReac Type Severity Reaction Status Date / Time mercury (elemental) Allergy Unknown Rash Verified 10/22/19 11:33 [Mercury (Elemental)] Sulfa (Sulfonamide Allergy Unknown Rash Verified 10/22/19 11:33 Antibiotics) mold Allergy Sneezing Uncoded 10/22/19 11:33 Home Meds: Home Meds Folic Acid 1 mg PO DAILY 03/30/14 [History] Loratadine/Pseudoephedrine [Claritin-D 24 Hour Tablet] 1 tab PO DAILY PRN [History] Tamsulosin [Flomax] 0.4 mg PO DAILY 03/30/14 [History] Tiotropium [Spiriva Handihaler] 1 cap INH DAILY 03/30/14 [History] Warfarin Sodium 5 mg PO ASDIRECTED 03/30/14 [History] Acetaminophen/Diphenhydramine [Tylenol Pm Ex-Strength Caplet] 2 tab PO DAILY PRN MDD 1000 mg 09/21/15 [History] Warfarin [Coumadin] 2.5 mg PO ASDIRECTED 09/21/15 [History] Albuterol/Ipratropium [DuoNeb 3.0-0.5 MG/3 ML] 3 ml NEB Q4HRRT PRN #60 neb 06/06 [Rx] methylPREDNISolone [Medrol] 4 mg PO ASDIRECTED #21 dosepk 06/06/17 [Rx] Doxycycline [Vibramycin] 100 mg PO Q12HR 06/11/17 [History] Famotidine 20 mg PO DAILY 06/11/17 [History] Prednisone [IJD: Prednisone] 5 mg PO DAILY 06/11/17 [History] traMADol [Ultram] 50 mg PO Q12HR PRN 06/11/17 [History] Diltiazem [Cardizem CD] 120 mg PO DAILY #60 cap.cd 06/12/17 [Rx] Finasteride [Proscar] 5 mg PO BEDTIME #60 tablet 06/12/17 [Rx] Levofloxacin [IJD: Levofloxacin] 750 mg PO Q48H #8 tab 06/12/17 [Rx] Past Medical History HEENT History: Reports: Hard of Hearing, Impaired Vision, Other (See Below) Other HEENT History: [place] to the right ear, sees well with glasses Cardiovascular History: Reports: Afib, Blood Clots/VTE/DVT, CAD, High Cholesterol, Hypertension, [place], SOB on Exertion Respiratory History: Reports: Bronchitis, Recurrent, COPD, PE, Pneumonia, Recurrent, Sleep Apnea, SOB Gastrointestinal History: Reports: GERD, Hemorrhoids Genitourinary History: Reports: BPH, Other (See Below) Other Genitourinary History: kidney disease Musculoskeletal History: Reports: Back Pain, Chronic, Osteoarthritis Other Musculoskeletal History: spinal stenosis, spina bifida occulta Neurological History: Reports: None Psychiatric History: Reports: None Endocrine/Metabolic History: Reports: Obesity/BMI 30+ Hematologic History: Reports: Folic Acid Other Hematologic History: Factor V Immunologic History: Reports: None Oncologic (Cancer) History: Reports: Basal Cell Carcinoma Dermatologic History: Reports: Other (See Below) Other Dermatologic History: skin cancer removed from nose, right hip has bandage to right hip it drains thick, white/yellow drainage - Infectious Disease History Infectious Disease History: Reports: None - Past Surgical History Head Surgeries/Procedures: Reports: None HEENT Surgical History: Reports: Tonsillectomy Cardiovascular Surgical History: Reports: None Respiratory Surgical History: Reports: Other (See Below) Other Respiratory Surgeries/Procedures: bronchoscopy GI Surgical History: Reports: Appendectomy, Cholecystectomy, Colonoscopy, EGD, Hernia, Inguinal Other GI Surgeries/Procedures: right inguinal surgery Male Surgical History: Reports: Other (See Below) Other Male Surgeries/Procedures: kidney disease. slow bladder flow Endocrine Surgical History: Reports: None Neurological Surgical History: Reports: None Musculoskeletal Surgical History: Reports: Arthroscopic Knee, Hip Replacement, Knee Replacement Other Musculoskeletal Surgeries/Procedures:: right hip replaced in 1989, left knee and arthroscopic suregery Oncologic Surgical History: Reports: Other (See Below) Other Oncologic Surgeries/Procedures: skin cancer removal to nose Dermatological Surgical History: Reports: Skin Biopsy Social & Family History - Family History Family Medical History: Noncontributory HEENT: Reports: None Cardiac: Reports: [place] GI: Reports: Other (See Below) Other GI Family History: mother had stomach ulcers OBGYN: Reports: None Musculoskeletal: Reports: Osteoarthritis Neurological: Reports: CVA Hematologic: Reports: None Oncologic: Reports: Bladder, Brain, Colon, Prostate, Other (See Below) Other Oncologic Family History: throat and bladder cancer - Tobacco Use Smoking Status *Q: Never Smoker Second Hand Smoke Exposure: No - Caffeine Use Caffeine Use: Reports: Coffee - Recreational Drug Use Recreational Drug Use: No - Living Situation & Occupation Living situation: Reports: , with Spouse Occupation: Retired Review of Systems - Review of Systems Review Of Systems: Comprehensive ROS is negative, except as noted in HPI. ED EXAM, GENERAL - Physical Exam Exam: See Below Exam Limited By: No Limitations General Appearance: Alert, WD/WN, No Apparent Distress Eye Exam: Bilateral Eye: EOMI, Normal Inspection, PERRL Ears: Normal External Exam, Normal Canal, Hearing Grossly Normal, Normal TMs Ear Exam: Bilateral Ear: Auricle Normal, Canal Normal, TM normal Nose: Normal Inspection, Normal Mucosa, No Blood Throat/Mouth: Normal Inspection, Normal Lips, Normal Teeth, Normal Gums, Normal Oropharynx, Normal Voice, No Airway Compromise Head: Atraumatic, Normocephalic Neck: Normal Inspection, Supple, Non-Tender, Full Range of Motion Respiratory/Chest: No Respiratory Distress, Lungs Clear, Normal Breath Sounds, No Accessory Muscle Use, Chest Non-Tender Cardiovascular: Normal Peripheral Pulses, Regular Rate, Rhythm, No Edema, No Gallop, No JVD, No Murmur, No Rub Peripheral Pulses: 2+: Brachial (L), Brachial (R), Radial (L), Radial (R) Extremities: Normal Inspection, No Pedal Edema, Normal Capillary Refill, Arm Pain (left shoulder), Limited Range of Motion (left shoulder). No: Joint Swelling, Increased Warmth Neurological: Alert, Oriented, CN II-XII Intact, Normal Cognition, Normal Gait, Normal Reflexes, No Motor/Sensory Deficits Psychiatric: Normal Affect, Normal Mood Skin Exam: Warm, Dry, Intact, Normal Color, No Rash Course - Vital Signs Last Recorded V/S: Last Vital Signs Temp 36.3 C 10/22/19 11:33 Pulse 88 10/22/19 11:33 Resp 18 10/22/19 11:33 BP 174/81 H 10/22/19 11:33 Pulse Ox 96 10/22/19 11:33 - Orders/Labs/Meds Orders: Active Orders 24 hr Category Date Time Status DME for Discharge [COMM] Urgent Oth 10/22/19 12:27 Ordered Departure - Departure Time of Disposition: 12:29 Condition: Fair Clinical Impression: Humeral head fracture Qualifiers: Encounter type: initial encounter Fracture type: closed Laterality: left Qualified Code(s): S42.292A - Other displaced fracture of upper end of left humerus, initial encounter for closed fracture - Discharge Information *PRESCRIPTION DRUG MONITORING PROGRAM REVIEWED*: Not Applicable *COPY OF PRESCRIPTION DRUG MONITORING REPORT IN PATIENT LILIANA: Not Applicable Instructions: Humerus Fracture Treated With Immobilization, [id number] Forms: ED Department Discharge Additional Instructions: Rx: Tramadol 50 mg X-ray results were reviewed with patient during visit. Notified he has a humeral head fracture of his left shoulder. Take Tramadol 50 mg every 6 hours as needed for pain. Utilize sling for immobilization of shoulder to allow healing. Follow-up in clinic with primary care provider in 1 week for further evaluation. Sepsis Event Note - Evaluation Sepsis Screening Result: No Definite Risk - Focused Exam Vital Signs: Vital Signs Temp Pulse Resp BP Pulse Ox 10/22/19 11:33 36.3 C 88 18 174/81 H 96 Date Exam was Performed: 10/22/19 Time Exam was Performed: 12:29 - My Orders Last 24 Hours: My Active Orders 10/22/19 12:27 DME for Discharge [COMM] Urgent - Assessment/Plan Last 24 Hours: My Active Orders 10/22/19 12:27 DME for Discharge [COMM] Urgent <Asher Gaona - Last Filed: 10/22/19 12:35> Course - Re-Assessments/Exams Free Text/Narrative Re-Assessment/Exam: 10/22/19 12:34 I have examined the patient. I have discussed findings and treatment plan with the PA student. I agree with the assessment and plan in the following students note. Sepsis Event Note - Focused Exam Date Exam was Performed: 10/22/19 Time Exam was Performed: 12:34
--- NOTE | 2019-10-22 12:24 | CR ---
EXAMINATION: Shoulder Comp Lt 3 views SEX: Male AGE: 74 years CLINICAL HISTORY: Clinical history: 74-year-old male injured in a fall (left shoulder pain). INTERPRETATION: 1. Acute nondisplaced fracture greater tuberosity lateral aspect proximal left humerus. 2. Note: The humerus appears subluxed relative to the glenoid of the scapula suggesting capsular injury as well. 3. No acromioclavicular separation. No underlying scapular fracture. 4. Underlying ribs upper left hemithorax unremarkable. Left lung is clear. CONCLUSION: Nondisplaced proximal left humeral FRACTURE.
== END 2019-10-22 12:44 | disposition home or self-care (01) ==
LOC: DL.ED 11:27
DX: S42.292A Other displaced fracture of upper end of left humerus, initial encounter for closed fracture (principal); I48.91 Unspecified atrial fibrillation; I10 Essential (primary) hypertension; E78.00 Pure hypercholesterolemia, unspecified; K21.9 Gastro-esophageal reflux disease without esophagitis; Z79.01 Long term (current) use of anticoagulants; Z79.899 Other long term (current) drug therapy; Z91.09 Other allergy status, other than to drugs and biological substances; Z88.2 Allergy status to sulfonamides; Z88.8 Allergy status to other drugs, medicaments and biological substances; W01.0XXA Fall on same level from slipping, tripping and stumbling without subsequent striking against object, initial encounter
CPT/HCPCS: 73030-LT; 99283; 99284

== ENCOUNTER 2020-12-08 19:01 | Emergency (ER) | payer MEDICARE, BC ==
[2020-12-08] MEDS ORDERED: Lidocaine 2% with EPINEPHrine 1:200,000 20 ML SDV INJECT ONE (19:18)
--- NOTE | 2020-12-08 19:47 | EDM.PDOC ---
"ED HPI GENERAL MEDICAL PROBLEM - General Source of Information: Reports: Patient History Limitations: Reports: No Limitations - History of Present Illness Onset: Today Onset Time: 02:30 Location: Reports: Head Quality: Reports: Ache Severity: Mild - General Chief Complaint: Trauma Stated Complaint: FELL HEAD WOUND, LEFT EYEBROW BLOODY Time Seen by Provider: 12/08/20 19:42 - History of Present Illness INITIAL COMMENTS - FREE TEXT/NARRATIVE: Vignesh is a 75 year old male presenting to the emergency department for bleeding from his head following a fall. Vignesh fell on the cement around 2 pm this afternoon and hit his head on the ground. The fall was accidental, his legs got caught up in his cane which caused the fall. He denies LOC following the fall. He was assisted by people with him and the cut stopped bleeding with steri strips. Around 630 his wound on his head started bleeding and they could not stop it with pressure. Since the fall he denies headaches, vision changes, nausea, vomiting, dizziness or chest pain. (Tim Finn) - Related Data Allergies Allergy/AdvReac Type Severity Reaction Status Date / Time mercury (elemental) Allergy Unknown Rash Verified 12/08/20 19:24 [Mercury (Elemental)] Sulfa (Sulfonamide Allergy Unknown Rash Verified 12/08/20 19:24 Antibiotics) mold Allergy Sneezing Uncoded 12/08/20 19:24 Home Meds: Home Meds Folic Acid 1 mg PO DAILY 03/30/14 [History] Loratadine/Pseudoephedrine [Claritin-D 24 Hour Tablet] 1 tab PO DAILY PRN 03/30/14 [History] Tamsulosin [Flomax] 0.4 mg PO DAILY 03/30/14 [History] Tiotropium [Spiriva Handihaler] 1 cap INH DAILY 03/30/14 [History] Warfarin Sodium 5 mg PO ASDIRECTED 03/30/14 [History] Acetaminophen/Diphenhydramine [Tylenol Pm Ex-Strength Caplet] 2 tab PO DAILY PRN MDD 1000 mg 09/21/15 [History] Warfarin [Coumadin] 2.5 mg PO ASDIRECTED 09/21/15 [History] Albuterol/Ipratropium [DuoNeb 3.0-0.5 MG/3 ML] 3 ml NEB Q4HRRT PRN #60 neb 06/06/17 [Rx] methylPREDNISolone [Medrol] 4 mg PO ASDIRECTED #21 dosepk 06/06/17 [Rx] Doxycycline [Vibramycin] 100 mg PO Q12HR 06/11/17 [History] Famotidine 20 mg PO DAILY 06/11/17 [History] Prednisone [IJD: Prednisone] 5 mg PO DAILY 06/11/17 [History] traMADol [Ultram] 50 mg PO Q12HR PRN 06/11/17 [History] Diltiazem [Cardizem CD] 120 mg PO DAILY #60 cap.cd 06/12/17 [Rx] Finasteride [Proscar] 5 mg PO BEDTIME #60 tablet 06/12/17 [Rx] Levofloxacin [IJD: Levofloxacin] 750 mg PO Q48H #8 tab 06/12/17 [Rx] Past Medical History HEENT History: Reports: Hard of Hearing, Impaired Vision, Other (See Below) Other HEENT History: [place] to the right ear, sees well with glasses Cardiovascular History: Reports: Afib, Blood Clots/VTE/DVT, CAD, High Cholesterol, Hypertension, [place], SOB on Exertion Respiratory History: Reports: Bronchitis, Recurrent, COPD, PE, Pneumonia, Recurrent, Sleep Apnea, SOB Gastrointestinal History: Reports: GERD, Hemorrhoids Genitourinary History: Reports: BPH, Other (See Below) Other Genitourinary History: kidney disease Musculoskeletal History: Reports: Back Pain, Chronic, Osteoarthritis Other Musculoskeletal History: spinal stenosis, spina bifida occulta Neurological History: Reports: None Psychiatric History: Reports: None Endocrine/Metabolic History: Reports: Obesity/BMI 30+ Hematologic History: Reports: Folic Acid Other Hematologic History: Factor V Immunologic History: Reports: None Oncologic (Cancer) History: Reports: Basal Cell Carcinoma Dermatologic History: Reports: Other (See Below) Other Dermatologic History: skin cancer removed from nose, right hip has bandage to right hip it drains thick, white/yellow drainage - Infectious Disease History Infectious Disease History: Reports: None - Past Surgical History Head Surgeries/Procedures: Reports: None HEENT Surgical History: Reports: Tonsillectomy Cardiovascular Surgical History: Reports: None Respiratory Surgical History: Reports: Other (See Below) Other Respiratory Surgeries/Procedures: bronchoscopy GI Surgical History: Reports: Appendectomy, Cholecystectomy, Colonoscopy, EGD, Hernia, Inguinal Other GI Surgeries/Procedures: right inguinal surgery Male Surgical History: Reports: Other (See Below) Other Male Surgeries/Procedures: kidney disease. slow bladder flow Endocrine Surgical History: Reports: None Neurological Surgical History: Reports: None Musculoskeletal Surgical History: Reports: Arthroscopic Knee, Hip Replacement, Knee Replacement Other Musculoskeletal Surgeries/Procedures:: right hip replaced in 1989, left knee and arthroscopic suregery Oncologic Surgical History: Reports: Other (See Below) Other Oncologic Surgeries/Procedures: skin cancer removal to nose Dermatological Surgical History: Reports: Skin Biopsy Social & Family History - Family History Family Medical History: No Pertinent Family History HEENT: Reports: None Cardiac: Reports: [place] GI: Reports: Other (See Below) Other GI Family History: mother had stomach ulcers OBGYN: Reports: None Musculoskeletal: Reports: Osteoarthritis Neurological: Reports: CVA Hematologic: Reports: None Oncologic: Reports: Bladder, Brain, Colon, Prostate, Other (See Below) Other Oncologic Family History: throat and bladder cancer - Caffeine Use Caffeine Use: Reports: Coffee - Living Situation & Occupation Living situation: Reports: , with Spouse Occupation: Retired Review of Systems - Review of Systems Review Of Systems: Comprehensive ROS is negative, except as noted in HPI. ED EXAM, GENERAL - Physical Exam Exam: See Below Exam Limited By: No Limitations General Appearance: Alert, No Apparent Distress Eye Exam: Bilateral Eye: EOMI, PERRL Ears: Normal External Exam Nose: Normal Inspection Throat/Mouth: Normal Inspection Head: Facial Swelling, Other (1 cm laceration above left eye brow ) Neck: Normal Inspection Respiratory/Chest: No Respiratory Distress Cardiovascular: Regular Rate, Rhythm Neurological: Alert, Oriented, CN II-XII Intact Skin Exam: Wound/Incision ED TRAUMA PROCEDURES - Laceration/Wound Repair Right Forehead Appearance: Superficial Local Anesthesia - Lidocaine (Xylocaine): 2% with EPI Local Anesthetic Volume: 3cc Skin Prep: Saline Closed With: Sutures Suture Size: 5-0 # of Sutures: 2 Suture Type: Other (Ethilon) Course - Orders/Labs/Meds Meds: Medications Discontinued Medications Generic Name Dose Route Start Last Admin Trade Name Freq PRN Reason Stop Dose Admin Lidocaine/Epinephrine 20 ml 12/08/20 19:18 12/08/20 19:23 Lidocaine 2% With Epinephrine 1:200,000 20 Ml Sdv INJECT 12/08/20 19:19 20 ml ONETIME ONE Administration - Radiology Interpretation Free Text/Narrative:: [facility] [place] [facility] Final Radiology Report Call: [phone] assistance Online chat: [email or web address] Name: VIGNESH CARLOS Age: 75Years M Date: 12/08/2020 SSN: -- : 1945 Study: CT HEAD WO CONT Requesting Physician: Tim Finn Images: 156 Addl Studies: Provided Clinical History: ground level fall on coumadin Contrast: Without Contrast Medium: Contrast Amount: Contrast Method: Page 1 of 2 PROCEDURE INFORMATION: Exam: CT Head Without Contrast Exam date and time: 12/08/2020 8:00 PM Age: 75 years old Clinical indication: Other: Fall; Additional info: Ground level fall on coumadin TECHNIQUE: Imaging protocol: Computed tomography of the head without contrast. Radiation optimization: All CT scans at this facility use at least one of these dose optimization techniques: automated exposure control; mA and/or kV adjustment per patient size (includes targeted exams where dose is matched to clinical indication); or iterative reconstruction. COMPARISON: MR Brain wo Cont 10/20/2020 8:14 AM FINDINGS: Brain: Age related brain involution is present. No acute intracranial hemorrhage, mass effect, midline shift, or brain herniation. Diffuse subcortical and periventricular white matter hypodensities are most in favor with chronic small vessel disease. Cerebral ventricles: There is ex vacuo ventriculomegaly. Bones/joints: Unremarkable. No acute fracture. Paranasal sinuses: There is fluid within the sinuses, consistent with sinusitis. Mastoid air cells: Visualized mastoid air cells are well aerated. Orbital cavity: There have been bilateral intraocular lens replacements. Vasculature: Intracranial atherosclerosis is present. Soft tissues: Left periorbital posttraumatic soft tissue swelling. IMPRESSION: 1. Left periorbital posttraumatic soft tissue swelling. 2. Negative for acute intracranial pathology. VIGNESH CARLOS | Final Radiology Report CONFIDENTIALITY STATEMENT This report is intended only for use by the referring physician, and only in accordance with law. If you received this in error, call [phone]. Page 2 of 2 Thank you for allowing us to participate in the care of your patient. Dictated and Authenticated by: Kelton Henriquez, (Asher Gaona) - Re-Assessments/Exams Free Text/Narrative Re-Assessment/Exam: 12/08/20 20:22 I have examined the patient. I have discussed findings and treatment plan with the Dr. Finn. I agree with the assessment and plan in the following residents note. (Asher Gaona) Departure - Departure Time of Disposition: 20:21 Condition: Good - Discharge Information *PRESCRIPTION DRUG MONITORING PROGRAM REVIEWED*: Not Applicable *COPY OF PRESCRIPTION DRUG MONITORING REPORT IN PATIENT LILIANA: Not Applicable - Departure Disposition: Home, Self-Care 01 Clinical Impression: Laceration of forehead Qualifiers: Encounter type: initial encounter Qualified Code(s): S01.81XA - Laceration without foreign body of other part of head, initial encounter - Discharge Information Instructions: Laceration Care, Adult, [id number] Additional Instructions: Advised Vignesh that he has a 1 cm laceration on his forehead that was repaired with 2 sutures. Recommended he follow-up with his PCP for suture removal in 7-10 days"
--- NOTE | 2020-12-08 20:20 | CT ---
PROCEDURE INFORMATION: Exam: CT Head Without Contrast Exam date and time: 12/08/2020 8:00 PM Age: 75 years old Clinical indication: Other: Fall; Additional info: Ground level fall on coumadin TECHNIQUE: Imaging protocol: Computed tomography of the head without contrast. Radiation optimization: All CT scans at this facility use at least one of these dose optimization techniques: automated exposure control; mA and/or kV adjustment per patient size (includes targeted exams where dose is matched to clinical indication); or iterative reconstruction. COMPARISON: MR Brain wo Cont 10/20/2020 8:14 AM FINDINGS: Brain: Age related brain involution is present. No acute intracranial hemorrhage, mass effect, midline shift, or brain herniation. Diffuse subcortical and periventricular white matter hypodensities are most in favor with chronic small vessel disease. Cerebral ventricles: There is ex vacuo ventriculomegaly. Bones/joints: Unremarkable. No acute fracture. Paranasal sinuses: There is fluid within the sinuses, consistent with sinusitis. Mastoid air cells: Visualized mastoid air cells are well aerated. Orbital cavity: There have been bilateral intraocular lens replacements. Vasculature: Intracranial atherosclerosis is present. Soft tissues: Left periorbital posttraumatic soft tissue swelling. IMPRESSION: 1. Left periorbital posttraumatic soft tissue swelling. 2. Negative for acute intracranial pathology.
== END 2020-12-08 20:30 | disposition home or self-care (01) ==
LOC: DL.ED 19:01
DX: S01.81XA Laceration without foreign body of other part of head, initial encounter (principal); I48.91 Unspecified atrial fibrillation; I25.10 Atherosclerotic heart disease of native coronary artery without angina pectoris; I10 Essential (primary) hypertension; I25.2 Old myocardial infarction; J44.9 Chronic obstructive pulmonary disease, unspecified; K21.9 Gastro-esophageal reflux disease without esophagitis; N40.0 Benign prostatic hyperplasia without lower urinary tract symptoms; Z91.048 Other nonmedicinal substance allergy status; Z88.2 Allergy status to sulfonamides; Z79.01 Long term (current) use of anticoagulants; Z79.899 Other long term (current) drug therapy; Z86.711 Personal history of pulmonary embolism; Z86.718 Personal history of other venous thrombosis and embolism; W22.8XXA Striking against or struck by other objects, initial encounter
CPT/HCPCS: 12011; 70450; 99283-25

== ENCOUNTER 2021-10-10 12:42 | Emergency (ER) | payer MEDICARE, BC ==
[2021-10-10] MEDS ORDERED: Iopamidol 612 MG/ML 100 ML Bottle IVPUSH ONE (13:23)
[2021-10-10 13:33] LABS: CHLORIDE,CL 102 mmol/L (98-107); SODIUM,NA 139 mmol/L (136-145)
[2021-10-10] MEDS ORDERED: Acetaminophen/HYDROcodone 325-5 MG Tab PO ONE (15:17)
== END 2021-10-10 16:46 | disposition home or self-care (01) ==
LOC: DL.ED 12:42
DX: S06.370A Contusion, laceration, and hemorrhage of cerebellum without loss of consciousness, initial encounter (principal); S22.008A Other fracture of unspecified thoracic vertebra, initial encounter for closed fracture; S12.9XXA Fracture of neck, unspecified, initial encounter; M25.562 Pain in left knee; D68.9 Coagulation defect, unspecified; I25.10 Atherosclerotic heart disease of native coronary artery without angina pectoris; E78.00 Pure hypercholesterolemia, unspecified; I10 Essential (primary) hypertension; I25.2 Old myocardial infarction; K21.9 Gastro-esophageal reflux disease without esophagitis; N40.0 Benign prostatic hyperplasia without lower urinary tract symptoms; E66.9 Obesity, unspecified; Z68.30 Body mass index [BMI] 30.0-30.9, adult; Z88.2 Allergy status to sulfonamides; Z88.8 Allergy status to other drugs, medicaments and biological substances; Z91.048 Other nonmedicinal substance allergy status; Z79.899 Other long term (current) drug therapy; W10.8XXA Fall (on) (from) other stairs and steps, initial encounter
CPT/HCPCS: 36415; 70450; 71260; 72125; 72128; 72131; 73560; 74177; 80053; 81001; 82150; 83690; 83735; 83880; 84484; 85025; 85610; 93005; 99284; A9270; Q9967

== ENCOUNTER 2022-01-30 21:42 | Emergency (ER) | payer MEDICARE, BC ==
[2022-01-30 22:18] LABS: ANION GAP 11.1 mEq/L (7-13); CHLORIDE,CL 104 mmol/L (98-107); SODIUM,NA 143 mmol/L (136-145)
[2022-01-30 22:20] LABS: ESTIMATED GFR > 60
[2022-01-30 22:57] VITALS: BP 187/106; PULSE 90
[2022-01-30] MEDS ORDERED: Albuterol/Ipratropium 3.0-0.5 MG/3 ML Neb Soln ONE (23:19)
[2022-01-30] MEDS ORDERED: Albuterol/Ipratropium 3.0-0.5 MG/3 ML Neb Soln NEB ONE (23:19)
== END 2022-01-31 01:08 ==
LOC: DL.ED 21:42
DX: L76.22 Postprocedural hemorrhage of skin and subcutaneous tissue following other procedure (principal); I48.91 Unspecified atrial fibrillation; I25.10 Atherosclerotic heart disease of native coronary artery without angina pectoris; E78.00 Pure hypercholesterolemia, unspecified; I10 Essential (primary) hypertension; N40.0 Benign prostatic hyperplasia without lower urinary tract symptoms; J44.9 Chronic obstructive pulmonary disease, unspecified; E66.9 Obesity, unspecified; Z79.899 Other long term (current) drug therapy; Z79.01 Long term (current) use of anticoagulants; Z88.2 Allergy status to sulfonamides; Z91.048 Other nonmedicinal substance allergy status; Z68.34 Body mass index [BMI] 34.0-34.9, adult
CPT/HCPCS: 36415; 80053; 85025; 85610; 99284-25; 99285; J7620-GY

== ENCOUNTER 2022-04-02 21:35 | Emergency (ER) | payer MEDICARE, BC ==
[2022-04-02] MEDS ORDERED: Sodium Chloride 0.9% 10 ML Syringe FLUSH PRN (21:47)
[2022-04-02] MEDS ORDERED: Mannitol 500 ML ONE (21:49)
[2022-04-02] MEDS ORDERED: Iopamidol 612 MG/ML 100 ML Bottle IVPUSH ONE (21:56)
[2022-04-02] MEDS ORDERED: MANNITOL IV SCH (22:00)
[2022-04-02] MEDS: Etomidate 2 MG/ML 20 ML SDV IVPUSH ONE ×2 (22:00→22:06)
[2022-04-02] MEDS: Tranexamic Acid 1,000 MG in Sodium Chloride 0.9% 100 ML IV ONE (22:01)
[2022-04-02] MEDS ORDERED: Etomidate 2 MG/ML 20 ML SDV IVPUSH ONE (22:06)
[2022-04-02] MEDS: Succinylcholine 200 MG/10 ML MDV IV ONE (22:10)
[2022-04-02 22:46] LABS: ANION GAP 9.5 mEq/L (7-13); CHLORIDE,CL 101 mmol/L (98-107); SODIUM,NA 136 mmol/L (136-145)
[2022-04-02 22:50] LABS: ESTIMATED GFR 87 mL/min (>=60)
[2022-04-02 22:57] LABS: PTT,PARTIAL THROMBOPLSTIN TIME 29.4 SEC (22.0-34.0)
[2022-04-02 23:07] VITALS: BP 103/74; PULSE 112
[2022-04-03] MEDS: Succinylcholine 200 MG/10 ML MDV IV ONE
== END 2022-04-02 22:55 ==
LOC: DL.ED 21:35
DX: S12.600A Unspecified displaced fracture of seventh cervical vertebra, initial encounter for closed fracture (principal); S22.019A Unspecified fracture of first thoracic vertebra, initial encounter for closed fracture; S06.5X0A Traumatic subdural hemorrhage without loss of consciousness, initial encounter; I25.10 Atherosclerotic heart disease of native coronary artery without angina pectoris; J44.9 Chronic obstructive pulmonary disease, unspecified; I10 Essential (primary) hypertension; E66.9 Obesity, unspecified; Z68.30 Body mass index [BMI] 30.0-30.9, adult; Z79.01 Long term (current) use of anticoagulants; Z91.048 Other nonmedicinal substance allergy status; Z88.2 Allergy status to sulfonamides; Z79.899 Other long term (current) drug therapy; Z90.49 Acquired absence of other specified parts of digestive tract; Z20.822 Contact with and (suspected) exposure to COVID-19; W18.39XA Other fall on same level, initial encounter
CPT/HCPCS: 31500; 36415; 43752; 51702; 70450; 71045; 71260; 72125; 74177; 80053; 83605; 84484; 85025; 85610; 85730; 86850; 86900; 86901; 93005; 93010; 96365; 99284; 99285; J0330; J3490; Q9967; U0002